=== PATIENT | female | born 1950 | race Caucasian/White ===

== ENCOUNTER 2023-03-27 07:59 | Day surgery (SDC) | payer MEDICARE, SELFPAY ==
[2023-03-27] VITALS (7 sets, daily range): BP systolic 93–131; BP diastolic 50–68; PULSE 50–63; RESP 16–18; TEMP 36.5–36.8; O2SAT 97–100; BMI 34.7
[2023-03-27] MEDS: Lactated Ringers 1,000 ML 15 ML IV (08:38)
--- NOTE | 2023-03-27 08:41 | PCM.HP.BLA ---
History and Physical Date of Admission: 03/27/23 Intake Vital Signs 02/22/2315:18 BP 112/71 Blood Pressure Location Rt brachial Position Sitting Respiration 17 Pulse 73 Pulse Source Monitor Temp 97.4 F L Temp Source Temporal Pulse Oximetry (%) 97 Oxygen Delivery Method room air Intake Visit Reasons: C-Scope Anemia & Abnormal CT [place] Chief Complaint: c-scope anemia/ abnormal CT [place] Is patient in pain?: No Allergies Sulfa (Sulfonamide Antibiotics) Allergy (Severe, Verified 02/22/23 15:21) Itching Medications albuterol sulfate 90 mcg/actuation aerosol inhaler (Ventolin HFA) 2 puff inhalation Q6H PRN 02/22/23 [History Confirmed 02/22/23] atorvastatin 20 mg tablet 20 mg PO DAILY 02/22/23 [History Confirmed 02/22/23] ferrous sulfate 325 mg (65 mg iron) tablet (Feosol) 325 mg PO DAILY 02/22/23 [History Confirmed 02/22/23] fluticasone 500 mcg-salmeterol 50 mcg/dose blistr powdr for inhalation (Advair Diskus) 1 inh inhalation BID 02/22/23 [History Confirmed 02/22/23] ipratropium 0.5 mg-albuterol 3 mg (2.5 mg base)/3 mL nebulization soln 3 ml inhalation Q6H PRN 02/22/23 [History Confirmed 02/22/23] levothyroxine 150 mcg capsule 150 mcg PO DAILY 02/22/23 [History Confirmed 02/22/23] lorazepam 1 mg tablet (Ativan) 1 mg PO DAILY PRN 02/22/23 [History Confirmed 02/22/23] losartan 100 mg tablet (Cozaar) 100 mg PO DAILY 02/22/23 [History Confirmed 02/22/23] montelukast 10 mg tablet (Singulair) 10 mg PO DAILY 02/22/23 [History Confirmed 02/22/23] [facility] Medical History (Updated 02/22/23 @ 16:[address] Andrade Traore MD) FH: total knee replacement H/O hiatal hernia Surgical History (Updated 02/22/23 @ 15:17 by Colette Clemente) History of appendectomy History of cholecystectomy Family History (Updated 02/22/23 @ 15:18 by Colette Clemente) Sister Colon cancerFather Diabetes Heart diseaseMother Kidney disease Social History (Updated 02/22/23 @ 15:18 by oClette Clemente) Smoking Status: Never smoker alcohol intake: never substance use type: does not use HPI HPI HPI: Patient is a 73-year-old female here with abnormal CT scan. The patient was having a right-sided abdominal pain and a CT scan was ordered. The CT scan revealed thickening of the rectum concerning for malignancy. The patient also is anemic. She denies any gross blood in her stool. She had an EGD recently that did not show any reason for her anemia. Her last colonoscopy was last year. She does have a family history of colon cancer in her sister. ROS General General: Yes weight change and fatigue; No appetite, colon cancer, breast cancer or weakness HEENT HEENT: No difficulty swallowing, eye injury, eye surgery, swollen glands or hoarseness Endo Endocrine: Yes thyroid disease and diabetes mellitus; No thyroid cancer, Hair loss, heat intolerance or cold intolerance Skin Skin: No rash or changing moles Musc Musculoskeletal: Yes arthritis and rheumatoid arthritis; No back problems, gout or joint pain Cardio Cardiovascular: Yes high blood pressure; No murmur, pacemaker, heart disease, atrial fibrillation, heart attack, heart stent, palpitations, shortness of breat with exertion or chest pain Psych Psychiatric: Yes anxiety; No depression or hearing voices Resp Respiratory: No shortness of breath, No sleep apnea, No cough, No COPD, No asthma, No emphysema and No wheezing Gastro Gastrointestinal: Yes abdominal pain, No nausea or vomiting, No diarrhea, No constipation, No blood in stool, Yes acid reflux, Yes hemorrhoids, No ulcers, No gallbladder problem and No black,tarry stools Reyes Hematologic: No blood thinners, No blood disorders, No bleeding, Yes anemia and No blood clots Neuro Neurologic: No system reviewed and no additional complaints, except as documented, No as per HPI, No abnormal gait, No abnormal hearing, No abnormal movements, No abnormal speech, No behavioral changes, No burning sensations, No confusion, No convulsions, No disequilibrium, No dizziness, No localized weakness, No frequent falls, No headache(s), No lack of coordination, No loss of vision, No memory loss, No numbness, No other visual disturbances, No radicular pain, No restless legs, No sensory deficit, No syncope, No tingling, No tremor(s), No weakness and No other Exam Const General: cooperative Orientation: alert and oriented x3 HENMT Head: normal to inspection Neck Neck: normal visual inspection and full ROM Chest Chest palpation & inspection: normal inspection of the chest Resp Effort & Inspection: normal respiratory effort Auscultation: clear to auscultation bilaterally Cardio Rate: regular rate Rhythm: regular rhythm GI Inspection: non-distended Palpation: soft and nontender Skin General: no rashes or lesions noted Neuro General: patient alert and patient oriented x3 Extrem General: full ROM Psych Appearance: grossly normal Mental Status: mental status grossly normal Assessment and Plan Assessment and Plan (1) Anemia: Status: Acute Qualifiers: Anemia type: unspecified type Qualified Code(s): D64.9 - Anemia, unspecified (2) Abnormal CT scan, colon: Status: Acute Orders: Orders Colonoscopy Today Plan The patient had thickening of her rectum on CT exam. I performed a rectal exam but I did not feel any mass or firm areas in the rectum or anal canal. I will plan to repeat colonoscopy to evaluate for her anemia. I explained endoscopy in detail to the patient. I explained the risks including but not limited to stroke or heart attack with anesthesia, perforation of the GI tract, bleeding, infection. I explained that any of these could necessitate further emergency surgery. The patient understands and all questions were answered sufficiently. The patient wishes to proceed with procedure. Andrade Traore MD Pager: [facility] [address] [place] [address], [address] [place] [address] Office: I have examined the patient and the H&P has been reviewed. There are no clinical changes since date of exam.
--- NOTE | 2023-03-27 09:28 | OP.CCLET_ITS ---
03/27/2023 Kevin Adam Re : Colonoscopy procedure for Suha Adam This procedure was performed on Monday, March 27, 2023. My impressions and recommendations are as follows: Impressions : - The entire examined colon is normal on direct and retroflexion views. - No specimens collected. Recommendations : - Discharge patient to home. - Resume previous diet. - Continue present medications. - Repeat colonoscopy is not recommended due to current age (66 years or older) for screening purposes. My findings are described in the full procedure note, which is enclosed. If I can be of further assistance, please feel free to contact me at Doctor phone number(s): , Work: . Sincerely, Andrade Traore MD 03/27/2023 9:28:11 AM This report has been signed electronically.
--- NOTE | 2023-03-27 09:28 | OP.COLON_ITS ---
Patient Name: Suha Weinberg Procedure Date: 03/27/2023 8:49 AM Date of : 1950 Age: 73 Procedure: Colonoscopy Indications: Abnormal CT of the GI tract Providers: Andrade Traore MD Medicines: Monitored Anesthesia Care Patient Profile: This is a 73 year old female. Refer to note in patient chart for documentation of history and physical. Last Colonoscopy: 3 years ago. Complications: No immediate complications. Procedure: Pre-Anesthesia Assessment: - Prior to the procedure, a History and Physical was performed, and patient medications and allergies were reviewed. The patient's tolerance of previous anesthesia was also reviewed. The risks and benefits of the procedure and the sedation options and risks were discussed with the patient. All questions were answered, and informed consent was obtained. Prior Anticoagulants: The patient has taken no anticoagulant or antiplatelet agents. After reviewing the risks and benefits, the patient was deemed in satisfactory condition to undergo the procedure. After I obtained informed consent, the scope was passed under direct vision. Throughout the procedure, the patient's blood pressure, pulse, and oxygen saturations were monitored continuously. The Colonoscope was introduced through the anus and advanced to the cecum, identified by appendiceal orifice and ileocecal valve. The colonoscopy was performed without difficulty. The patient tolerated the procedure well. The quality of the bowel preparation was good. The ileocecal valve, appendiceal orifice, and rectum were photographed. Scope In: 9:09:39 AM Scope Withdrawal Time 0 hours 6 minutes 14 seconds Scope Out: 9:25:07 AM Total Procedure Duration Time 0 hours 15 minutes 28 seconds Findings: The entire examined colon appeared normal on direct and retroflexion views. Impression: - The entire examined colon is normal on direct and retroflexion views. - No specimens collected. Recommendation: - Discharge patient to home. - Resume previous diet. - Continue present medications. - Repeat colonoscopy is not recommended due to current age (66 years or older) for screening purposes. Procedure Code(s): --- Professional --- 90470, Colonoscopy, flexible; diagnostic, including collection of specimen(s) by brushing or washing, when performed (separate procedure) Diagnosis Code(s): --- Professional --- R93.3, Abnormal findings on diagnostic imaging of other parts of digestive tract CPT copyright 2021 [employer]. All rights reserved. The codes documented in this report are preliminary and upon dental nurse review may be revised to meet current compliance requirements. Andrade Traore MD 03/27/2023 9:28:11 AM This report has been signed electronically. Number of Addenda: 0 Note Initiated On: 03/27/2023 8:49 AM
== END 2023-03-27 10:12 | disposition home or self-care (01) ==
LOC: EN 08:02 → AC 08:03
PROVIDERS: PCP Family Medicine; Referring Provider Family Medicine; Visit Provider Surgery
PROC: 0DJD8ZZ Inspection of Lower Intestinal Tract, Via Natural or Artificial Opening Endoscopic (ICD-10-PCS; CPT 45378; principal; 2023-03-27 09:10)
DX: Z12.11 Encounter for screening for malignant neoplasm of colon (principal); E11.9 Type 2 diabetes mellitus without complications; R93.3 Abnormal findings on diagnostic imaging of other parts of digestive tract; D64.9 Anemia, unspecified; I10 Essential (primary) hypertension; J45.909 Unspecified asthma, uncomplicated; E07.9 Disorder of thyroid, unspecified; E78.00 Pure hypercholesterolemia, unspecified; Z79.899 Other long term (current) drug therapy
CPT/HCPCS: 45378; J7120; J2405

== ENCOUNTER → 2023-07-31 | Outpatient (CLI) | payer MEDICARE, SELFPAY ==
--- NOTE | 2023-07-31 08:07 | CT_ITS ---
PROCEDURE: CT LEFT KNEE WITHOUT CONTRAST REASON FOR EXAM: Female, 73 years old. Preoperative planning for the MakoPlasty Robotic knee surgery. Knee pain. TECHNIQUE: Transaxial CT of the hip, knee and ankle were obtained. Coronal and sagittal reconstruction images of the knee were provided. Individualized dose optimization techniques were used for this CT. COMPARISON: None. FINDINGS: Standard protocol for the preoperative planning for the MakoPlasty robotic knee surgery was performed. Mild arthrosis of the left hip, moderate tricompartmental arthrosis of the left knee and moderate arthrosis of the tibiotalar joint CT/Extremity Lower without Contra IMPRESSION: Preoperative MakoPlasty Robotic knee surgical CT evaluation with findings as described above. Electronically Signed: Den Boyd MD at 12:29 EDT ,
== END | disposition home or self-care (01) ==
PROVIDERS: PCP Family Medicine; Referring Provider Specialist; Visit Provider Specialist
DX: M25.562 Pain in left knee (principal); M17.12 Unilateral primary osteoarthritis, left knee
CPT/HCPCS: 73700

== ENCOUNTER 2023-08-22 11:58 | Observation (INO) | payer MEDICARE, SELFPAY ==
--- NOTE | 2023-07-31 08:09 | EKG12_ITS ---
Test Reason : PREOP Blood Pressure : / mmHG Vent. Rate : 060 BPM Atrial Rate : 060 BPM P-R Int : 164 ms QRS Dur : 086 ms QT Int : 420 ms P-R-T Axes : 053 060 071 degrees QTc Int : 420 ms Normal sinus rhythm Normal ECG Confirmed by Bryn Worthington ([id number]), make up editor CÉSAR ALCALA ([id number]) on 08/01/2023 6:29:56 AM Referred By: Jb Issa Confirmed By:Bryn Worthington
[2023-07-31 09:03] LABS: Absolute Lymphocyte Count 1.29 X10^3/uL (0.83-4.51); Absolute Neutrophil Count 4.7 X10^3/uL (2.0-7.7); Hematocrit 35.7 % (37-47); Hemoglobin 11.3 g/dL (12.0-15.0); Lymphocyte # 1.29 X10^3/ul (0.83-4.51); Lymphocyte % 19.9 % (19-41); Mean Corp Hgb Conc 31.7 g/dL (32-36); Mean Corpuscular Volume 88.4 fL (81-99); Mean Platelet Vol. 10.5 fl (6.2-12.0); Monocyte# 0.47 X10^3/uL; Monocyte% 7.3 % (0-10); NRBC Flagged by Analyzer 0 % (0-5); Neutrophil % 72.5 % (47-70); Platelet Count 223 K/mm3 (150-450); RBC Distribution Width CV 14.3 % (11.6-14.6); RBC Distribution Width SD 46.2 fl (35.1-43.9); Red Blood Count 4.04 M/mm3 (4.2-5.4); White Blood Count 6.5 K/mm3 (4.4-11.0)
[2023-07-31 09:16] LABS: Magnesium 1.9 mg/dL (1.6-2.6)
[2023-07-31 09:19] LABS: Albumin, Serum 3.5 g/dL (3.2-5.0); Anion Gap 6 (5-15); BUN 9 mg/dL (7-18); BUN/Creat Ratio 11.7 RATIO (10-20); Calcium,Total 8.8 mg/dL (8.5-10.1); Chloride 107 mmol/L (98-107); Creatinine, Serum 0.77 mg/dL (0.55-1.02); EST Glomerular Filtration Rate 78 mL/min (>60); Est Glom Filt Rate - Afr Amer 94 mL/min (>60); Glucose 141 mg/dL (74-106); Potassium 3.8 mmol/L (3.5-5.1); Sodium Level 139 mmol/L (136-145)
[2023-07-31 10:45] LABS: Hemoglobin A1c 7.2 % (3.8-5.6)
--- NOTE | 2023-08-13 13:11 | HP.PCM_ITS ---
History and Physical History and Physical? Patient Name: Suha Weinberg : 1950 From:? ARGELIA TOLEDO PA-C? DATE OF PRE-OPERATIVE EXAM: 08/13/2023 DATE OF SURGERY:? 08/22/2023 SCHEDULED PROCEDURE:? Left total knee arthroplasty HISTORY OF PRESENT ILLNESS: Preoperative history and physical exam was performed on August 13, 2023.? This is a 73-year-old female who is been having ongoing pain for the past 6 months in her left knee.? She has had previous right total knee [place] [address] Snow.? Patient's pain can reach 10/10 with activities.? She has used on occasion Percocet for pain control.? Patient had to stop the meloxicam due to rash.? She states the anti-inflammatory was helpful.? She has taken other anti- inflammatories including ibuprofen or Aleve in the past without problems.? Her pain as being constant, stabbing, sore.? Pain is increased with going up and down stairs, sitting and walking.? She has difficulty getting out of the vehicle due to the pain.? 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 She has difficulty putting on her socks and shoes as well as housework and shopping.? She has tripped/stumbled secondary to her knee pain.? She has attempted ice, heat, oral medications with no significant relief.? Pain is located over the medial aspect of the knee and lateral.? She does get posterior knee pain as well.? Pain does awaken her at nighttime.? She has to use a cane for ambulatory assistance.? She denies past history of surgery on the right knee.? Patient has obtain surgical clearance from her primary care provider Dr. Kevin Adam.? She also sees a drafting layout worker Dr. Loo.? Per patient she states the drafting layout worker that she does not have COPD but does have asthma.? We are sending for clearance to her drafting layout worker.? Patient has medical history pertinent for type 2 diabetes mellitus with the last A1c 7.2, hypertension, asthma, sleep apnea, and anemia.? With regards to the anemia and December 2022 her hemoglobin was at 8.3.? Most recent hemoglobin was 11.3.? She states she had a previous colonoscopy and upper endoscopy.? Patient reports there was no active bleeding appreciated.? She also documents a hiatal hernia.? She denies past history of DVT or pulmonary embolism.? There is been no recent chest pain, shortness breath, fevers chills or recent infections.? After failing conservative measures and discussing all treatment options with Dr. Jb Issa, the patient does wish to proceed with a left total knee arthroplasty. REVIEW OF SYSTEMS: Review Of Systems: Constitutional: Reports weight change, but denies change in appetite and fever. Cardiovasular: Denies chest pain, heart murmur and irregular heartbeat. Respiratory: Reports shortness of breath and wheezing, but denies cough, pneumonia and tuberculosis. Gastrointestinal: Reports heartburn, but denies constipation, diarrhea, nausea, rectal itching, bloody stools and vomiting. Musculoskeletal: Reports gait disturbance, leg swelling, pain, trouble walking and weakness. Skin: Denies Raynaud's, history of shingles and tattoo. Neurological: Reports dizziness and numbness/tingling but denies ambulatory dysfunction and tremor. Psychiatric: Denies anxiety, insomnia and stress. Hematologic/Lymphatic: Reports anemia, but denies bleeding/bruising tendency and past transfusion. Reviewed and updated. PAST MEDICAL HISTORY: Advance Care Plan: No Advance Directives Effective Date: 11/16/2022 Past Medical History: Medical Problems: Arthritis, Asthma, Diabetes, High Blood Pressure, Sleep Apnea, Anemia Accidents: None Surgical Hx: Section - (1975) [facility]? Hernia Repair - (2019) [facility]? Knee Replacement Rt - (1998) [facility] Anesthesia Complications: Anesthesia Complications Assistive Devices: Dentures Reviewed and updated. 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 Personal Habits:? Cigarette Use: Never Smoked Cigarettes.Smokeless Tobacco: Never Used Smokeless Tobacco.E-Cigarette Use: Never used.Alcohol: Occasionally.Drug Use: Denies Use.Enjoy Exercising: Never Exercises. Reviewed, no changes. VITALS: Ht: 62 Wt: 191lb Wt k.638 BMI: 34.9 BP: 142/78 Pulse: 78 Resp: 17 T: 97.3 T: 36.3C Pain Level: 7 O2SatR: 97 ALLERGIES: Sulfa Meloxicam? MEDICATIONS: Mupirocin 2 % use qtip and apply inside each nostril twice a day until the day of surgery, Levothyroxine Sodium 150 mcg daily, Montelukast Sodium 10 mg 1 by mouth every day, Atorvastatin Calcium 20 mg 1 by mouth every day, Losartan Potassium 100 mg 1 by mouth every day, Ipratropium [place]/Albuterol Sulfate 0.5-2.5 (3) mg/3ml every 4 hours, Ventolin Inhaler? inhaler 2 puffs as needed, Oxycodone-Acetaminophen 5-325 mg take 1 tablet by mouth every 6 hours as needed for pain, Folic Acid 5 mg daily, Iron 28 mg daily PRE-OP EXAM:? General appearance:NORMAL? ? ? Other: Eyes: Conjunctivae and lids: NORMAL? Pupils: ERR Ears, Nose, Mouth, and Throat: NORMAL? Other: Inspection of lips, teeth and gums: NORMAL? ?Other: Neck: Examination of neck: no masses noted. Respiratory: Assessment of respiratory effort: NORMAL? ?Other: ?Auscultation of lungs: clear to auscultation no wheezes, rhonchi or rales. Cardiovascular:? Auscultation of heart: regular rate and rhythm, no murmurs, gallops or rubs. PHYSICAL EXAMINATION: On exam of the left knee there is no erythema or signs of infection.? Patient has significant tenderness over the medial joint line and lateral joint line.? There is a large effusion with the left knee.? Range of motion: Lacks 5 full extension to 112 flexion.? Stable to varus/valgus stress test, stable to anterior/posterior drawer exam. IMAGING STUDIES: Previous x-rays of the left knee reveal varus alignment with medial joint space narrowing, subchondral sclerosis, osteophyte formation consistent with severe stage IV [id number] osteoarthritis.? On the right knee there does appear to be a total knee arthroplasty with evidence of ostial lysis in the medial tibia IMPRESSION: 1.? Severe left knee osteoarthritis with varus deformity 2.? Presence of right total knee arthroplasty 3.? Hypertension 4.? Type 2 diabetes mellitus: A1c currently 7.2 5.? Sleep apnea 6.? Anemia 7.? Asthma 8.? Obesity with BMI 34.9 PLAN: Dr. Jb Issa did discuss and review with the patient all treatment options including surgical versus nonsurgical options.? Patient does wish to proceed with the above-stated procedure.? Potential risks, benefits, and complications of the procedure were discussed in detail including but not limited to , infection, nerve and blood vessel damage, persistent pain, numbness, tingling, paresthesias, blood clot, pulmonary embolism, and requirement for possible further surgery.? The patient expressed full understanding and has no further questions for the doctor.? Patient does agree to proceed with the above-stated procedure and has signed the surgery consent form. POST-OP MEDICATION PLAN: Pain Medications: Postoperative pain regimen will be initiated by Dr. Jb Issa in the hospital.? Patient is not able to take meloxicam or Celebrex due to side effect.? However she has handled other nonsteroidal anti-inflammatories without problems.? Due to patient's A1c greater than 7.0 and preoperatively found to be staph positive she will be placed on doxycycline postoperatively for 2 weeks.? Instructed patient of the risks of hypersensitivity to the sunlight as she should take appropriate precautions.? Also recommend [id number] probiotics while on antibiotic.? Patient also reports that she lives home alone and there is concern for discharge home.? I did explain to her that she will be evaluated by physical therapy postoperatively and case management will be on board for appropriate and safe discharge planning. DVT Prophylaxis:? Aspirin 81 mg twice daily for 4 weeks postoperatively.? Denies past history of DVT or pulmonary embolism This dictation was created using voice recognition software. Phonetic and/or grammatical errors may exist. ___? I have re-examined the patient.? There are no clinical changes since date of exam. ___? See progress notes for changes. ___? Dictated on admission Date: ? ? ?Time: Signature:
[2023-08-22] VITALS (23 sets, daily range): BP systolic 106–150; BP diastolic 55–75; PULSE 49–89; RESP 14–20; TEMP 36–36.8; O2SAT 87–100; BMI 34.9
[2023-08-22] MEDS: Lactated Ringers 1,000 ML 999 ML IV (08:17)
[2023-08-22] MEDS: Gabapentin 600 MG Tablet PO (08:17)
[2023-08-22] MEDS: Vancomycin HCl 1,250 MG in 0.9% Normal Saline (250mL Bag) 250 ML 167 MG IV (08:17)
[2023-08-22] MEDS: Acetaminophen 500 MG Tablet 1000 MG PO ×3 (08:17→22:47)
[2023-08-22] MEDS: Magnesium 2 GM for ERAS IV (08:17)
[2023-08-22] MEDS: Ipratropium/Albuterol Sulfate 3 ML AMPUL.NEB INHALATION (09:10)
[2023-08-22] MEDS: Cefazolin 2 GM in 0.9% Normal Saline (100mL Bag) 100 ML IV (09:54)
--- NOTE | 2023-08-22 10:00 | KNEE_PTH ---
PATIENT: YOSELIN RIVERS LOC: [facility] U#:[id number] AGE/SX: 73/F ROOM: MI319 RE08/22/[address]: Dr. Luis F Rouse MD : 1950 BED: 1 DIS: 08/29/2023 SPEC #: [id number] RECD: 08/22/23 13:46 STATUS: MAGALI LOMAX #: [id number] VIELKA: 08/22/23 10:[address]: Jb Issa DEPT: SURGICAL PATHOLOGY RECD BY: Nanette Begum ENTERED: 08/22/23 14:03 SP TYPE: TOTAL KNEE OTHR DR: DO Dr. Kevin Judd MD Tissues: Knee, NOS Procedures: Decalcification bone/plaque Surgery Specimen Level IV HEADER OPERATION: ERAS, total knee replacement robotic arm assist PRE-OP DIAGNOSIS: Severe left knee osteoarthritis with varus deformity TISSUE SUBMITTED: Bone and soft tissue left knee MICROSCOPIC DIAGNOSIS Bone and tissue of left knee, total knee resection: Severe degenerative joint disease. AM:mr 08/28/23 MICROSCOPIC DESCRIPTION Slides are reviewed. GROSS DESCRIPTION Received is one container designated bone and soft tissue left knee. The specimen consists of multiple fragments of dey-yellow bone measuring in aggregate 8.5 x 10.0 x 4.0 cm. No soft tissue is identified. A number of bony fragments contain articular surfaces consistent with tibial plateau and femoral condyle and displaying prominent osteophyte formation, eburnation and bone erosion. Human Relations Manager sections are submitted in two cassettes as follows: 1 - bone after decalcification. / 08/22/23 TC:5 CPT: 05985, 16421
[2023-08-22] MEDS: TXA 1000mg in NS100 100ml (IVPB at Incision) 660 MG IV (10:10)
[2023-08-22] MEDS: TXA 1000mg in NS100 100ml (IVPB at Closure) 660 MG IV (11:16)
[2023-08-22] MEDS: JPS (Morphine 10mg/ml) OPERA.SITE (11:17)
--- NOTE | 2023-08-22 11:21 | OP.PCM_ITS ---
Report of Operation Date of Procedure: 08/22/23 Pre-Operative Diagnosis: Left knee primary osteoarthritis Post-Operative Diagnosis: Left knee primary osteoarthritis Surgery/Procedure Performed:: Left knee minimally invasive robotic assisted total knee replacement Description of Surgical Findings:: Stable knee with good patella tracking Surgeon: Jb Issa morning news anchor: Dominguez Cortez Type of Anesthesia: Spinal Anesthesiologist: Vinayak Banks Special Medications: 2 g Ancef, 1 g TXA at incision, 1 g TXA closure, 10 mg Decadron, joint cocktail (5 mg Duramorph, 30 mL of 0.5% Ropivicaine, 1000 units of epinephrine, 30 mg of Toradol) Specimen's removed: Bony cuts Estimated Blood Loss (mL): 75 Fluids Replaced: 1000 ML Description of Procedure: Implants used: 1. Amina size 2 triathlon cruciate retaining distal femoral press-fit component 2. Waller size 3 press-fit tritanium tibial baseplate 3. Amina X3 9 mm CS polyethylene 4. Waller X3 35 mm asymmetric patella Brief history operative indications: 73-year-old F with history of left knee osteoarthritis with radiographic findings with loss of joint space, osteophyte formation and subchondral sclerosis. Failed conservative measures as mentioned in the H&P. Discussion of total knee arthroplasty as well as risk and benefits were discussed the patient including but not limited to blood loss, DVTs, PEs, neurovascular damage, gener al risk of anesthesia including loss of life, and stiffness or instability were discussed with patient. Patient demonstrated understanding and was able to sign informed consent. Procedure: On the date of procedure patient's left lower extremity was marked in the preoperative area. The patient was then taken back to the operating room where the patient was placed on the table in the supine position. All bony prominences were identified a well-padded. Anesthesia assumed control of the C-spine and airway and remained controlled throughout the remainder of the procedure. A tourniquet was placed on the left upper thigh and the leg was prepped in a sterile fashion. The surgeon then scrubbed at this time .Upon reentering the room left lower extremity was draped in a standard orthopedic fashion. A timeout was then called and everyone agreed upon the side, the site, the procedure to be performed, patient's identity and antibiotics given. Esmarch bandage was used to exsanguinate the extremity and the tourniquet was placed up to 250 mmHg with the knee in flexion. A midline skin incision was made and sharp dissection was taken down through skin subcutaneous tissue and fat. The standard medial parapatellar incision was made and the patella was subluxed laterally. An Appropriate deep MCL release was done and the fat pad was resected. Our attention was then directed to the patella. The patella was everted and a flat resection was made. The knee was then flexed up in 2 femoral pins were placed inside the incision and 2 tibial pins were placed outside the incision in the medial tibia bi cortically. Once this was completed the 2 checkpoints in the femur and tibia were placed. Knee was then flexed up and the bony landmarks were registered. Once this was completed knee was taken through range of motion and manually stressed allowing us to a plan for an appropriate tibial cut. The robotic arm was brought into the field sterilely and checkpoint and saw were registered. Based on the patient's deformity the tibial cut was made in 1.5 degrees of valgus. At this time the tensioner was then placed in the joint and ligament tension was checked at 90 degrees and full extension. Based on the patient's ligamentous tension appropriate adjustments were made to the operative plan and ligament releases were done. Once we were happy with our operative plan with balanced flexion and extension gaps our attention was directed to the femur. The robot was brought into the field sterilely and registered. Posterior condylar cuts, anterior chamfer cuts and anterior cuts were appropriately made for a size 2 femur. When these were completed the saws were switched out in the distal femoral and posterior chamfer cuts were made. Protecting the soft tissue throughout this time. A size 3 tibial base plate was selected. the knee was flexed to 90 degrees and the soft tissues and posterior osteophytes were removed from the joint. 40 cc of the periarticular injection was injected into the posterior medial corner of the joint. The appropriate trials were then placed on the femur and tibia. A trial polyethylene was trialed to ensure proper balancing and stability of the knee. The appropriate tibial internal rotation was then marked with a bovie. Our attention was then directed to the patella. The lug holes were drilled and the patella trial was placed. Patellar tracking was checked and deemed appropriate. Once we were happy lug holes were drilled for the femur and trial components were removed. the tibia was subluxed and pinned into place and the keel was punched and drilled appropriately. Final components were verified and opened, and cement was mixed in a vacuum. [employer] Simplex cement was used. The wound was copiously irrigated with normal saline. When the cement was ready the components were impacted into place starting with the tibia, femur and finally cementing the patella. The trial poly component was placed and the knee was placed in full extension. All excess cement was removed in the process. Once the cement had cured the tracking, alignment and balance were verified and a size 9 mm CS polyethylene component was placed. Once the final components were placed a 3-minute dilute Betadine lavage was performed followed by an Irrisept lavage was performed and the wound was copiously irrigated with normal saline solution and the periarticular injection was given. The wound was closed in a layer jimenez fashion using #1 vicryl interrupted sutures for the arthrotomy, 2-0 interrupted Vicryl suture for the subcuticular layer and kristin for final skin closure. A sterile compressive dressing was then placed. The patient was then awakened from anesthesia, transferred to the [facility] and transferred to the PACU for recovery. Post op plan DVT ppx: ASA 81mg BID, thigh high compression stockings Follow up: in office in 2 weeks for wound check PT: to start POD #0 at hospital, outpatient PT should be arranged. Patient be placed on doxycycline postoperatively due to positive staph screening and hemoglobin A1c greater than 7 but less than 7.5. My physician commercial real estate assistant was a vital part of this case. He was important in appropriate retraction during the case, and protection of soft tissues during bony cuts. His intimate knowledge of the case and my steps aided in safe and expedient completion of the procedure as well as appropriate position of the leg during the case. He was also vital in assisting with closure under my direct supervision. Due to the complexity of this case robotic arm was used to assist in the surgery to improve accuracy and clinical outcomes. Complications No intraoperative complications Admit VTE Documentation VTE Present on Admission: No VTE Mechan Device Prophylaxis: SCD's and Thigh High KELSEA Hose VTE Pharm Prophylaxis ordered?: Yes
--- NOTE | 2023-08-22 12:20 | RAD_ITS ---
STUDY: X-RAY - LEFT KNEE REASON FOR EXAM: Female, 73 years old. Postoperative evaluation after total knee arthroplasty. TECHNIQUE: 2 view(s) of the knee. COMPARISON: CT of the left lower extremity dated 07/31/2023 FINDINGS: There is a 3 component total knee arthroplasty in anatomic position. There are expected post-operative findings. There are no complications. No other significant abnormality is identified. RAD/Knee 1 or 2 Views IMPRESSION: Total knee arthroplasty in anatomic alignment without complications. Electronically Signed: Den Boyd MD at 12:44 EDT ,
[2023-08-22] MEDS: Lactated Ringers 1,000 ML 125 ML IV (12:50)
[2023-08-22] MEDS: oxyCODONE 5 MG Tablet PO (13:59)
[2023-08-22] MEDS: 0.9% Saline Lock 10 ML Syringe IV (14:40)
--- NOTE | 2023-08-22 14:47 | PN.ORTHO_ITS ---
Subjective Subjective Postop rounds show patient with left knee pain. Overall doing well. Resting comfortably in bed. Objective Data Objective Data Vital Signs: Vital Signs Temp Pulse Resp BP Pulse Ox O2 Del Method O2 Flow Rate 98.2 F 52 L 16 129/55 H 96 Room Air 4 08/22/23 13:41 08/22/23 13:41 08/22/23 13:41 08/22/23 13:41 08/22/23 13:41 08/22/23 13:41 08/22/23 13:09 Oxygen Flow Rate (L/min) 4 Oxygen Delivery Method Room Air Weight: 191 lb Body Mass Index (BMI) 34.9 Intake & Output: Intake and Output for Last 24 Hours 08/20/23 08/21/23 08/22/23 23:59 23:59 23:59 Intake Total 1709 / 1709 Balance 1709 / 1709 Lab / Micro Data 07/31/23 08:38 07/31/23 08:38 Micro: Microbiology 07/31/23 08:38 Swab (Method) Nasal Screen MRSA/MSSA - Final Radiography Diagnostic Testing: Radiology Impression Knee X-Ray 08/22/23 12:20 IMPRESSION: Total knee arthroplasty in anatomic alignment without complications. Electronically Signed: Den Boyd MD at 12:44 EDT , I was able to personally review postoperative left knee x-rays. There is a corticated fragment consistent with bone in the lateral gutter. This is compared to preoperative CT scan and preoperative x-rays and do not appreciate a corresponding area of corticated tissue. CT scan and preoperative x-rays do show some posterior flabella type structures however, not consistent with size and location. Assessment & Plan Assessment/Plan (1) History of total left knee replacement: PLAN: Plan Left total knee replacement. Patient has stable well aligned total knee with overall satisfactory component placement however, there is a corticated foreign body likely consistent with bony fragment in the lateral gutter. I have discussed the patient these radiographic findings and my concerns for loose foreign body and associated third body wear which could cause catastrophic failure of knee replacement if left alone. Do understand patient does have preoperative findings consistent with flabella however, the location and size of the current radiographic findings are not consistent with the preoperative imaging. Based on this I spoke with the patient and with her family at bedside and recommended an exploration and removal of the foreign body should be fine did. Patient demonstrates an understanding and is agreeable. Case was dis cussed anesthesia we will proceed with surgery. Patient has had some clears. If we are able to do that today it should not alter patient's postoperative course. Consent has been obtained. Patient was made NPO.
[2023-08-22 14:48] LABS: Bedside Glucose 121 mg/dL (74-106)
--- NOTE | 2023-08-22 14:48 | PN.HOSP_ITS ---
Reason for Visit Reason for Visit: Diagnoses Encounter for other preprocedural examination (08/22/23) Subjective Subjective Consult requested by Dr. Issa for postoperative medical management Patient nauseated postop did have a one-time episode of emesis. No abdominal pain.. Patient had increased pain in her left knee but this currently doing better. Objective Data Objective Data Vital Signs: Vital Signs Temp Pulse Resp BP Pulse Ox O2 Del Method O2 Flow Rate 36.8 C 52 L 16 129/55 H 96 Room Air 4 08/22/23 13:41 08/22/23 13:41 08/22/23 13:41 08/22/23 13:41 08/22/23 13:41 08/22/23 13:41 08/22/23 13:09 Oxygen Flow Rate (L/min) 4 Oxygen Delivery Method Room Air Weight: 86.636 kg Body Mass Index (BMI) 34.9 Intake & Output: Intake and Output for Last 24 Hours 08/20/23 08/21/23 08/22/23 23:59 23:59 23:59 Intake Total 1709 / 1709 Balance 1709 / 1709 Lab / Micro Data 07/31/23 08:38 07/31/23 08:38 Micro: Microbiology 07/31/23 08:38 Swab (Method) Nasal Screen MRSA/MSSA - Final Radiography Diagnostic Testing: Radiology Impression Knee X-Ray 08/22/23 12:20 IMPRESSION: Total knee arthroplasty in anatomic alignment without complications. Electronically Signed: Den Boyd MD at 12:44 EDT Reading Location ID and State: [address] [place] [address] , Service support , Physical Exam Const alert and no apparent distress Constitutional Narrative: Listless. Afebrile. Emesis bag in her hands. No active vomiting during encounter. Resp normal respiratory effort, no retractions, no use of accessory muscles and clear to auscultation bilaterally Cardio regular rate, regular rhythm, S1 normal heart sound and S2 normal heart sound GI normal to inspection, nondistended, normoactive bowel sounds, soft to palpation and non-distended Extremity Extremity Narrative: Left knee with ice pack and wrapped, did not remove. Assessment & Plan Assessment/Plan (1) Nausea & vomiting: PLAN: Plan Nausea and vomiting * Postoperative. Suspect will continue to get better. * Continue with as needed Zofran Status post left knee replacement * Management per orthopedics * VTE prophylaxis per orthopedics with aspirin twice daily Chronic conditions * Hypertension: Continue losartan * Hypothyroidism: Continue levothyroxine * Diabetes: Continue with metformin Thank for the consult. The hospitalist service will follow along during this patient's hospitalization. Charges/Coding Visit Charges Inpatient E&M: 21301 Subs Hosp L2
[2023-08-22 14:50] LABS: Bedside Glucose 154 mg/dL (74-106)
--- NOTE | 2023-08-22 15:27 | NURSING ---
Pt sent back down to OR
--- NOTE | 2023-08-22 16:10 | RAD_ITS ---
EXAM: XR LEFT KNEE, 1 OR 2 VIEWS CLINICAL INDICATION: LEFT KNEE TECHNIQUE: Frontal and/or lateral views of the left knee. COMPARISON: No relevant prior studies available. FINDINGS: BONES/JOINTS: Single image shows a left knee prosthesis. No acute fracture. No subluxation. Normal alignment. Preservation of the joint space. No sclerotic or destructive changes observed. SOFT TISSUES: Unremarkable. No soft tissue swelling or gas. No radiopaque foreign body. RAD/Knee 1 or 2 Views IMPRESSION: Left knee prosthesis in anatomic alignment. Electronically Signed: Aidan Rodas MD at 18:38 EDT ,
--- NOTE | 2023-08-22 16:25 | OP.PCM_ITS ---
Report of Operation Date of Procedure: 08/22/23 Pre-Operative Diagnosis: Left knee foreign body on postoperative x-ray Post-Operative Diagnosis: No appreciable foreign body on exploration. Surgery/Procedure Performed:: Left knee exploration and polyethylene exchange Description of Surgical Findings:: We were unable to identify a foreign body in the lateral or posterior lateral compartment of the knee. Live fluoroscopy was brought into reimage at multiple angles confirming that there was no appreciable lateral loose body. Surgeon: Jb Issa account executive key accounts: Dominguez Cortez Type of Anesthesia: General Anesthesiologist: Timothy Nuno Special Medications: 1 g of Ancef Estimated Blood Loss (mL): 25 Fluids Replaced: 1300 ML Description of Procedure: As noted in the post examination note patient x-rays were concerning for a lateral gutter loose fragment of bone. I discussed with the family and the patient need for exploration. Patient was able to sign consent. Patient had only a small amount of clear fluids. Case discussed anesthesia was appropriate to return to the operating room. Patient's left lower extremity was marked and consent was obtained. Patient was then brought back to the operating room where they transferred the table in supine position. Anesthesia central C-spine area made sure throughout the end the procedure. After patient was prepped anesthetized all bony prominence identified well-padded. A bump was placed under the left hip. Tourniquet was placed on the left thigh. At this time the dressing was removed and nylon sutures were removed. The wound was then prepped in a sterile fashion using chlorhexidine solution. Once we did this the wound was draped in a sterile fashion after the surgeon scrubbed. We then incised through the subcutaneous layer of sutures and remove the suture knots. We then incised to the arthrotomy layer of sutures and remove the sutures suture knots. We had access to the knee. We used suction to suction out the hemarthrosis. We did not note any bony fragments suctioned however they could have been. At this time we carefully explored the lateral gutter. Nothing was immediately visible there. We explored the medial gutter nothing was immediately visible. We palpated the area and nothing can be palpated it felt like a bony fragment. We then remove the polyethylene in order to gain access to the posterior knee. We carefully examined the posterior lateral gutter and posterior lateral knee. We also examined the posterior medial knee. There was no large bony fragment has concerning on the x-ray in this area. Based on this any bony areas noted on the x-ray likely related to flabella and calcifications of the tissue. We then used a live x-ray after placing the new polyethylene on multiple angles did not appear that there was a loose body in the lateral compartment now. We then carefully irrigated out the wound using chlorhexidine and 1500 mL of normal saline. Wound was closed in a layer jimenez fashion as it had been before with #1 Vicryl for the arthrotomy 2-0 Vicryl for the subcutaneous layer and 2-0 nylon for the skin. Sterile dressings were placed once more the patient was awakened by anesthesia and transferred to PACU recovery in stable condition. Postop plan: Continue with postoperative plan from total knee replacement. My physician rice cleaning machine tender (PE) was a vital part of this case. They were important in appropriate retraction during the case, and protection of soft tissues during exploration of. Their intimate knowledge of the case and my steps aided in safe and expedient completion of the procedure as well as appropriate position of the leg during the case. They were also vital in assisting with closure under my direct supervision. Admit VTE Documentation VTE Present on Admission: No VTE Mechan Device Prophylaxis: SCD's and Thigh High KELSEA Hose VTE Pharm Prophylaxis ordered?: Yes
[2023-08-22] MEDS: Cefazolin 1 GM/50 ML BAG IV (18:32)
[2023-08-22] MEDS: Budesonide Respules 0.5 MG/2 ML AMPUL.NEB. INHALATION (19:34)
[2023-08-22] MEDS: Albuterol 2.5 MG/3 ML VIAL.NEB. INHALATION (19:34)
[2023-08-22] MEDS: Ondansetron 4 MG/2 ML Vial IV (20:29)
[2023-08-22] MEDS: Ketorolac 15 MG/ML Vial IV (20:29)
[2023-08-22] MEDS: Senna/Docusate Sodium 1 Tablet 2 TABLET PO (22:47)
[2023-08-22] MEDS: Doxycycline 100 MG CAPSULE PO (22:47)
[2023-08-22] MEDS: Atorvastatin Calcium 20 MG Tablet PO (22:48)
[2023-08-23] VITALS (9 sets, daily range): BP systolic 106–146; BP diastolic 48–69; PULSE 57–75; RESP 16–18; TEMP 36.3–36.7; O2SAT 92–100
[2023-08-23] MEDS: oxyCODONE 5 MG Tablet PO ×5 (02:29→22:11)
[2023-08-23] MEDS: Cefazolin 1 GM/50 ML BAG IV (02:37)
[2023-08-23] MEDS: Ketorolac 15 MG/ML Vial IV (04:47)
[2023-08-23] MEDS: Acetaminophen 500 MG Tablet 1000 MG PO ×3 (04:47→22:11)
[2023-08-23] MEDS: Levothyroxine 150 MCG Tablet PO (04:48)
[2023-08-23 07:06] LABS: Bedside Glucose 170 mg/dL (74-106)
[2023-08-23 07:23] LABS: Hematocrit 31.1 % (37-47); Hemoglobin 9.5 g/dL (12.0-15.0); Mean Corp Hgb Conc 30.5 g/dL (32-36); Mean Corpuscular Hgb 28.3 pg (27.0-32.0); Mean Corpuscular Volume 92.6 fL (81-99); Mean Platelet Vol. 10.7 fl (6.2-12.0); Platelet Count 148 K/mm3 (150-450); RBC Distribution Width SD 54.5 fl (35.1-43.9); Red Blood Count 3.36 M/mm3 (4.2-5.4); White Blood Count 5.3 K/mm3 (4.4-11.0)
[2023-08-23] MEDS: Albuterol 2.5 MG/3 ML VIAL.NEB. INHALATION ×3 (07:27→19:25)
[2023-08-23] MEDS: Budesonide Respules 0.5 MG/2 ML AMPUL.NEB. INHALATION ×2 (07:28→19:25)
[2023-08-23 07:35] LABS: Anion Gap 3 (5-15); BUN 8 mg/dL (7-18); BUN/Creat Ratio 11.1 RATIO (10-20); Calcium,Total 8.2 mg/dL (8.5-10.1); Chloride 109 mmol/L (98-107); Creatinine, Serum 0.72 mg/dL (0.55-1.02); EST Glomerular Filtration Rate 84 mL/min (>60); Est Glom Filt Rate - Afr Amer 101 mL/min (>60); Estimated Creatinine Clearance 62.06 ml/min; Glucose 136 mg/dL (74-106); Potassium 4.2 mmol/L (3.5-5.1); Sodium Level 141 mmol/L (136-145)
[2023-08-23] MEDS: Senna/Docusate Sodium 1 Tablet 2 TABLET PO ×2 (07:44→22:07)
[2023-08-23] MEDS: Famotidine 20 MG Tablet PO (07:45)
[2023-08-23] MEDS: Cholecalciferol (VIT D3) 25 MCG TABLET (1,000 UNITS) PO (07:45)
[2023-08-23] MEDS: Doxycycline 100 MG CAPSULE PO ×2 (07:45→22:06)
[2023-08-23] MEDS: Aspirin 81 MG TAB.CHEW PO ×2 (07:45→17:30)
[2023-08-23] MEDS: Montelukast 10 MG Tablet PO (07:45)
[2023-08-23] MEDS: metFORMIN HCl 500 MG Tablet PO (07:45)
[2023-08-23] MEDS: 0.9% Saline Lock 10 ML Syringe IV ×2 (10:00→22:29)
[2023-08-23] MEDS: Ondansetron 4 MG/2 ML Vial IV ×2 (10:00→22:29)
[2023-08-23] MEDS: Morphine 4 MG/ML Syringe IV (10:02)
--- NOTE | 2023-08-23 10:08 | PN.ORTHO_ITS ---
Subjective Subjective The patient was sitting in bed upon examination. Patient denies any chest pain, shortness of breath, dizziness, lightheadedness, nausea or vomiting, or calf pain. Patient does feel the pain has increased and block is worn off. She is concerned about going home as she lives home alone. She is having increased pa in trying to walk to the bathroom. Physical therapy has yet to work with the patient today. Patient does have history of nausea. She was having nausea yesterday and has continued to have this this morning. After patient's surgery yesterday Dr. Jb Issa was reviewing x-rays and there was concern for possible foreign body. She was taken back to the operating room and exploration. There is no loose body found or foreign body. Objective Data Objective Data Vital Signs: Vital Signs Temp Pulse Resp BP Pulse Ox O2 Del Method O2 Flow Rate 97.9 F 70 18 121/65 H 93 Room Air 2 08/23/23 07:38 08/23/23 10:04 08/23/23 07:38 08/23/23 10:04 08/23/23 07:38 08/23/23 07:38 08/23/23 07:28 Oxygen Flow Rate (L/min) 2 Oxygen Delivery Method Room Air Weight: 86.6 kg Body Mass Index (BMI) 34.9 Intake & Output: Intake and Output for Last 24 Hours 08/21/23 08/22/23 08/23/23 23:59 23:59 23:59 Intake Total 2736.08 / 2736.08 250 / 250 Balance 2736.08 / 2736.08 250 / 250 Lab / Micro Data 08/23/23 06:16 08/23/23 06:16 Labs: Laboratory Results - last 24 hr 08/22/23 08:14: POC Glucose 121 H 08/22/23 12:48: POC Glucose 154 H 08/22/23 17:43: POC Glucose 170 H 08/23/23 06:16: WBC 5.3, RBC 3.36 L, Hgb 9.5 L, Hct 31.1 L, MCV 92.6, MCH 28.3, MCHC 30.5 L, RDW Std Deviation 54.5 H, RDW Coeff of Josefina 16.0 H, Plt Count 148 L, MPV 10.7, Sodium 141, Potassium 4.2, Chloride 109 H, Carbon Dioxide 29.0, Anion Gap 3 L, BUN 8, Creatinine 0.72, Estim Creat Clear Calc 62.06, Est GFR (MDRD) Af Amer 101, Est GFR (MDRD) Non-Af 84, BUN/Creatinine Ratio 11.1, Glucose 136 H, Calcium 8.2 L Micro: Microbiology 07/31/23 08:38 Swab (Method) Nasal Screen MRSA/MSSA - Final Radiography Diagnostic Testing: Radiology Impression Knee X-Ray 08/22/23 12:20 IMPRESSION: Total knee arthroplasty in anatomic alignment without complications. Electronically Signed: Den Boyd MD at 12:44 EDT , Knee X-Ray 08/22/23 16:10 IMPRESSION: Left knee prosthesis in anatomic alignment. Electronically Signed: Aidan Rodas MD at 18:38 EDT , Physical Exam Narrative Vital signs stable and afebrile. SCDs and KELSEA hose are in place bilaterally Patient is able to plantarflex and dorsiflex actively. Sensation is intact to light touch to saphenous, sural, superficial and deep peroneal, and tibial distribution. Dressing is clean dry and intact. Negative Homans bilaterally, negative signs and symptoms of DVT. Const alert, oriented x3 and no apparent distress Assessment & Plan Assessment/Plan (1) Status post total left knee replacement: PLAN: 1. S/P left total knee arthroplasty POD #1 2. Continue Pain Medications: Tylenol, naproxen, and oxycodone. Patient states she does not tolerate meloxicam or Celebrex however she has taken other anti- inflammatories and done well. 3. DVT Prophylaxis: Take 81 mg aspirin twice daily for 4 weeks postoperatively for DVT prophylaxis. Patient denies past history of DVT or pulmonary embolism. 4. PT/OT: Weightbearing as tolerated with walker. Appreciate recommendations from physical therapy. There is concern with patient going home as she lives home alone and concern for fall risk. She is having increased pain and difficulty walking. 5. H & H: 9.5/31.1, asymptomatic. Preoperatively patient was started on our a nemia protocol in which she takes ferrous sulfate and folic acid. Preoperatively her hemoglobin/hematocrit was 11.3/35.7. Patient has been followed in the past by her primary care physician in which she stopped iron. Patient reports that she has had a previous colonoscopy and upper GI exam in [facility] it did not show any bleed. She has been using [id number] iron and folic acid. I will add an to her medications in the hospital ferrous sulfate 325 mg twice daily and folic acid 1 mg daily. We will repeat lab work tomorrow. I will have patient ultimately follow-up with the primary care physician in 3-4 weeks with repeat lab work and continued management of the anemia. 6. Currently on doxycycline for 2 weeks postoperatively due to A1c greater than 7.0 and staph positive screening. I discussed with the patient potential side effects of doxycycline including sensitivity to the sunlight and increased risk of skin burn. Recommend patient take appropriate precautions. Also recommend patient to take probiotic while on the antibiotic. Patient voiced understanding agreement. 7. Continue postoperative medical management per medicine 8. Encouraged Incentive Spirometry 9. Disposition: There is concern for discharge home from safety standpoint as patient is having increased pain and difficulty with walking. Concern for fall risk. She lives home alone. Case management is currently involved with appropriate and safe discharge planning. Appreciate recommendations from physi will therapy. Case was discussed with physical therapy. Patient will most likely require [facility] facility upon discharge for recovery. We will continue above medications. I discussed in great detail with the patient all medications above. I have reviewed the [place] Automated Rx Reporting System (OARRS) report for this patient for refill pattern and other prescriber involvement as part of the appropriate surveillance for the provision of acute and chronic controlled medications. The report was requested and reviewed on the date of this entry and was considered in the prescribing process. This dictation was created using voice recognition software. Phonetic and/or grammatical errors may exist.
[2023-08-23] MEDS: Ferrous Sulfate 325 MG Tablet PO ×2 (11:58→17:30)
--- NOTE | 2023-08-23 12:06 | CASEMGMT ---
Discharge Planning A list of?SNF providers including quality and resource use data and consistent with the patient's preferred geographic region, medical needs, and insurance network was created in [employer] Guide.? This list was provided to the SW. Glenis Mcgowan Discharge Planning Asst.
--- NOTE | 2023-08-23 13:45 | CASEMGMT ---
RN?CM?CAN MAKER?CM?to room to meet with patient for initial transition planning/care coordination?assessment.?RN?CM?introduced self and role at [facility].? Pt voices understanding and consents to?assessment?at this time.? Pt sitting up in chair in room in no distress at this time.? Pt is A/O at this time and answers all questions appropriately.?? Care providers, pharmacy, and demographics verified/updated at this time. PCP: Dr Kevin Adam Specialists: Dr Issa-ortho. Dr Pool (pt not sure on spelling)-pest controller assistant in [place]. Preferred Pharmacy: [facility] Insurance: [employer] Prescription Benefit:?yes LNOK: Daughter, Mitzy. Son, Troy. Living Arrangements: Lives in one-story home w/5 steps to enter. Was independent prior to surgery w/ADL's and IADL's. Transportation:?Pt states drives self and states no transportation concerns at this time.? Pt drives Vik. DME: Has a cane @ home that she uses PRN and has a nebulizer. HHC/SNF: No hx of either. Discussed discharge planning. Pt states she does not think she can go home alone and wishes to go to a SNF. She was provided w/SNF list that was prepared by Glenis, discharge social media assistant. Pt states [facility] is her 1[facility] preference, as her sister is there. [facility] is her 2nd choice. Glenis made aware and will sent referral to [facility]. PLAN:??SNF. Lynne BSN?RN?CM
[2023-08-23] MEDS: proMETHazine 25 MG/ML Syringe 12.5 MG IM (14:13)
--- NOTE | 2023-08-23 14:20 | CASEMGMT ---
Discharge Planning Referral sent via [facility] to [facility]. Glenis Mcgowan, Discharge Planning Asst.
--- NOTE | 2023-08-23 14:54 | PN.HOSP_ITS ---
Reason for Visit Reason for Visit: Diagnoses Nausea with vomiting, unspecified (08/22/23) Encounter for other preprocedural examination (08/22/23) Presence of left artificial knee joint (08/22/23) Objective Data Objective Data Vital Signs: Vital Signs Temp Pulse Resp BP Pulse Ox O2 Del Method O2 Flow Rate 98.1 F 69 18 146/69 H 98 Room Air 2 08/23/23 14:11 08/23/23 14:11 08/23/23 14:11 08/23/23 14:11 08/23/23 14:11 08/23/23 14:11 08/23/23 07:28 Oxygen Flow Rate (L/min) 2 Oxygen Delivery Method Room Air Weight: 190 lb 14.725 oz Body Mass Index (BMI) 34.9 Intake & Output: Intake and Output for Last 24 Hours 08/21/23 08/22/23 08/23/23 23:59 23:59 23:59 Intake Total 2736.08 / 2736.08 250 / 250 Balance 2736.08 / 2736.08 250 / 250 Lab / Micro Data 08/23/23 06:16 08/23/23 06:16 Labs: Laboratory Results - last 24 hr 08/22/23 17:43: POC Glucose 170 H 08/23/23 06:16: WBC 5.3, RBC 3.36 L, Hgb 9.5 L, Hct 31.1 L, MCV 92.6, MCH 28.3, MCHC 30.5 L, RDW Std Deviation 54.5 H, RDW Coeff of Josefina 16.0 H, Plt Count 148 L, MPV 10.7, Sodium 141, Potassium 4.2, Chloride 109 H, Carbon Dioxide 29.0, Anion Gap 3 L, BUN 8, Creatinine 0.72, Estim Creat Clear Calc 62.06, Est GFR (MDRD) Af Amer 101, Est GFR (MDRD) Non-Af 84, BUN/Creatinine Ratio 11.1, Glucose 136 H, Calcium 8.2 L Micro: Microbiology 07/31/23 08:38 Swab (Method) Nasal Screen MRSA/MSSA - Final Radiography Diagnostic Testing: Radiology Impression Knee X-Ray 08/22/23 16:10 IMPRESSION: Left knee prosthesis in anatomic alignment. Electronically Signed: Aidan Rodas MD at 18:38 EDT , Physical Exam Narrative Seen and examined. Patient complain of 12 out of 10 left knee pain after she had physical therapy in the morning. Voiding urine spontaneously. Passing flatus. Last BM yesterday before surgery. No fever Physical exam General: Alert, Oriented x3, Cooperative HEENT: Atraumatic, PERRLA, EOMI, Normocephalic Oral: Oral mucosa moist. No Gingival or Mucosal Lesions/ Ulcerations Neck: Supple, No JVD, Negative Carotid Bruits Chest wall/Lungs: Air entry diminished in bilateral lung bases. No crepitation/rhonchi Cardiovascular: Regular rate, Regular Rhythm, Normal S1, Normal S2, No M/G/R Abdomen: Bowel Sounds Present, Soft, Non Tender, Non-Distended : No dysuria. No renal angle tenderness. No suprapubic tenderness. Extremities: No edema, Capillary Refill Less than 3 Seconds Skin: No rashes, No breakdown Musculoskeletal: Left knee TKR with ice pack. Surgical dressing is dry. No Tenderness to Palpation of other joints or Extremities Neurological: Cranial nerves II-XII grossly intact, DTR 2+/4. No acute focal neurological deficit. Psych/Mental Status: Flat affect. Assessment & Plan Assessment/Plan (1) Nausea & vomiting: PLAN: Plan This is a 73-year-old female being admitted for elective left knee replacement for left knee primary knee osteoarthritis Nausea and vomiting * Postoperative. Suspect will continue to get better. * Continue with as needed Zofran Status post left knee replacement * Management per orthopedics * VTE prophylaxis per orthopedics with aspirin twice daily Chronic conditions * Hypertension: Continue losartan * Hypothyroidism: Continue levothyroxine * Diabetes: Continue with metformin For acute medical issues. Blood pressure and heart rate is controlled. No hypoxia or tachypnea. Patient is here and might need acute rehab as per Ortho. Charges/Coding Visit Charges Inpatient E&M: 55965 Subs Hosp L2
--- NOTE | 2023-08-23 15:42 | CASEMGMT ---
Met with pt to complete CRUMP form. CRUMP form explained to pt at this time who voiced understanding and signed form. Original form placed in pt?s chart and copy provided to the pt. Darius Olvera RN CM
--- NOTE | 2023-08-23 16:19 | CASEMGMT ---
Addendum entered by Gio Hurley 08/23/23 16:24: Correction, pt made aware to change/reschedule this appt w/Dr Adam, if she has not discharged from SNF yet. Original Note: JAZMINE VÁSQUEZ NOTE: DANNIELLE Mix, requests for PCP appt to be scheduled in 3-4 weeks w/repeat lab work. Call placed to Dr Kevin Adam's office and appt scheduled for 09/11/23 @ 11 AM. Pt made aware and this was placed in pt's discharge plan. Pt also made aware to cancel this appt w/Dr Adam if she has not discharged from SNF yet. She voices understanding. Lynne VILLEGAS RN CM
[2023-08-23] MEDS: Naproxen 500 MG Tablet PO (17:30)
[2023-08-23] MEDS: LORazepam 1 MG Tablet PO (22:07)
[2023-08-23] MEDS: Atorvastatin Calcium 20 MG Tablet PO (22:07)
[2023-08-24] VITALS (9 sets, daily range): BP systolic 125–145; BP diastolic 56–74; PULSE 59–72; RESP 16–18; TEMP 36.4–36.8; O2SAT 93–100
[2023-08-24] MEDS: oxyCODONE 5 MG Tablet PO ×4 (05:55→20:27)
[2023-08-24] MEDS: Levothyroxine 150 MCG Tablet PO (05:55)
[2023-08-24] MEDS: Acetaminophen 500 MG Tablet 1000 MG PO ×3 (06:05→20:29)
[2023-08-24 06:24] LABS: Hematocrit 32.3 % (37-47); Mean Corpuscular Hgb 28.5 pg (27.0-32.0); Mean Platelet Vol. 10.6 fl (6.2-12.0); Platelet Count 161 K/mm3 (150-450); RBC Distribution Width CV 16.2 % (11.6-14.6); RBC Distribution Width SD 54.4 fl (35.1-43.9); Red Blood Count 3.51 M/mm3 (4.2-5.4); White Blood Count 5.7 K/mm3 (4.4-11.0)
--- NOTE | 2023-08-24 06:38 | PCM.PN.ORT ---
Subjective Subjective The patient was sitting in bed upon examination. Patient denies any chest pain, shortness of breath, dizziness, lightheadedness, or vomiting, or calf pain. Patient still has occasional nausea. Pain is controlled on medications. No adverse overnight events. Patient has been working with therapy. She does have increased pain when weightbearing. We are awaiting pre-CERT for patient to go to [facility] postoperatively. Objective Data Objective Data Vital Signs: Vital Signs Temp Pulse Resp BP Pulse Ox O2 Del Method O2 Flow Rate 97.6 F L 64 16 145/74 H 100 Nasal Cannula 2 08/24/23 05:54 08/24/23 05:54 08/24/23 05:54 08/24/23 05:54 08/24/23 05:54 08/24/23 05:54 08/24/23 05:54 Oxygen Flow Rate (L/min) 2 Oxygen Delivery Method Nasal Cannula Weight: 86.6 kg Body Mass Index (BMI) 34.9 Intake & Output: Intake and Output for Last 24 Hours 08/22/23 08/23/23 08/24/23 23:59 23:59 23:59 Intake Total 2736.08 / 2736.08 450 / 450 200 / 200 Balance 2736.08 / 2736.08 450 / 450 200 / 200 Lab / Micro Data 08/24/23 06:10 08/23/23 06:16 Labs: Laboratory Results - last 24 hr 08/22/23 17:43: POC Glucose 170 H 08/23/23 06:16: WBC 5.3, RBC 3.36 L, Hgb 9.5 L, Hct 31.1 L, MCV 92.6, MCH 28.3, MCHC 30.5 L, RDW Std Deviation 54.5 H, RDW Coeff of Josefina 16.0 H, Plt Count 148 L, MPV 10.7, Sodium 141, Potassium 4.2, Chloride 109 H, Carbon Dioxide 29.0, Anion Gap 3 L, BUN 8, Creatinine 0.72, Estim Creat Clear Calc 62.06, Est GFR (MDRD) Af Amer 101, Est GFR (MDRD) Non-Af 84, BUN/Creatinine Ratio 11.1, Glucose 136 H, Calcium 8.2 L 08/24/23 06:10: WBC 5.7, RBC 3.51 L, Hgb 10.0 L, Hct 32.3 L, MCV 92.0, MCH 28.5, MCHC 31.0 L, RDW Std Deviation 54.4 H, RDW Coeff of Josefina 16.2 H, Plt Count 161, MPV 10.6 Micro: Microbiology 07/31/23 08:38 Swab (Method) Nasal Screen MRSA/MSSA - Final Physical Exam Narrative Vital signs stable and afebrile. She is breathing on room air in no distress SCDs and KELSEA hose are in place bilaterally Patient is able to plantarflex and dorsiflex actively. Sensation is intact to light touch to saphenous, sural, superficial and deep peroneal, and tibial distribution. Dressing is clean dry and intact. Negative Homans bilaterally, negative signs and symptoms of DVT. Const alert, oriented x3 and no apparent distress Assessment & Plan Assessment/Plan (1) Status post total left knee replacement: PLAN: 1. S/P left total knee arthroplasty POD #2 2. Continue Pain Medications: Tylenol, naproxen, and oxycodone. Patient states she does not tolerate meloxicam or Celebrex however she has taken other anti-inflammatories and done well. 3. DVT Prophylaxis: Take 81 mg aspirin twice daily for 4 weeks postoperatively for DVT prophylaxis. Patient denies past history of DVT or pulmonary embolism. 4. PT/OT: Weightbearing as tolerated with walker. Appreciate recommendations from physical therapy. There is concern with patient going home as she lives home alone and concern for fall risk. She is having increased pain and difficulty walking. 5. H & H: 10.0/32.3, asymptomatic. Preoperatively patient was started on our anemia protocol in which she takes ferrous sulfate and folic acid. Preoperatively her hemoglobin/hematocrit was 11.3/35.7. Patient has been followed in the past by her primary care physician in which she stopped iron. Patient reports that she has had a previous colonoscopy and upper GI exam in which it did not show any bleed. She has been using [id number] iron and folic acid. Patient will continue on ferrous sulfate 325 mg twice daily and folic acid 1 mg daily. I will have patient ultimately follow-up with the primary care physician in 3-4 weeks with repeat lab work and continued management of the anemia. 6. Currently on doxycycline for 2 weeks postoperatively due to A1c greater than 7.0 and staph positive screening. I discussed with the patient potential side effects of doxycycline including sensitivity to the sunlight and increased risk of skin burn. Recommend patient take appropriate precautions. Also recommend patient to take probiotic while on the antibiotic. Patient voiced understanding agreement. 7. Continue postoperative medical management per medicine 8. Encouraged Incentive Spirometry 9. Continue on stool softener: Take until first bowel movement, then as needed for constipation. We did discuss the possibility of constipation associated with iron supplementation. If she is having any complications she will contact our office. Patient states she has yet to have bowel movement. 10. Disposition: There is concern for discharge home from safety standpoint as patient is having increased pain and difficulty with walking. There is concern for fall risk. She lives home alone. Case management is currently involved with appropriate and safe discharge planning. We are awaiting pre-CERT from insurance on patient going to [facility]. Appreciate recommendations from physical therapy. Discussed with the patient all medications above which she will take postoperatively. We will plan for discharge to halfway facility and patient's narcotic medication will be placed on chart. Med rec will also be placed on chart. We did discuss upon discharge if she has any concerns or questions she is to reach out to our office. Case management has also scheduled follow-up with the primary care physician in 3 weeks. I have reviewed the [place] Automated Rx Reporting System (OARRS) report for this patient for refill pattern and other prescriber involvement as part of the appropriate surveillance for the provision of acute and chronic controlled medications. The report was requested and reviewed on the date of this entry and was considered in the prescribing process. This dictation was created using voice recognition software. Phonetic and/or grammatical errors may exist.
--- NOTE | 2023-08-24 06:42 | TREXTCAR_ITS ---
Diet Diet Order/Speech Therapy: 08/23/23 04:36 Diet: Regular - General Type of Dietary Supplement:: Glucerna Shake Is pt able to select menu?: Yes Diet Comments: pt requests chocolate glucerna with meals Routine Orders/Code Status Routine Lab Work: CBC (Repeat CBC 3 days) and BMP (Repeat BMP 3 days) Code Status: Full Code Wound(s) LEFT KNEE: Wound Type: Surgical Incision rt lee: Wound Type: Surgical Incision Dressing Change: AntiMicrobial (Aquacel AG, etc) (Okay to remove dressing on August 27, 2023. Okay for shower with dressing. Once dressing removed still okay to shower but only use gentle soap and water over the incision for 6 weeks postoperatively. No ointments on the incision for 6 weeks.) Left forearm: Wound Type: Skin Tear left lee: Wound Type: Surgical Incision Right forearm: Wound Type: Skin Tear Therapies Weight Bearing: Weight bearing as tolerated (With walker) Extremity Affected:: Left Lower Physical Therapy: Eval and Treat Occupational Therapy: Eval and Treat Problem/Diagnosis (1) Status post total left knee replacement: Status: Acute Code(s): Z96.652 - Presence of left artificial knee joint Plan: 1. S/P left total knee arthroplasty POD #2 2. Continue Pain Medications: Tylenol, naproxen, and oxycodone. Patient states she does not tolerate meloxicam or Celebrex however she has taken other anti- inflammatories and done well. 3. DVT Prophylaxis: Take 81 mg aspirin twice daily for 4 weeks postoperatively for DVT prophylaxis. Patient denies past history of DVT or pulmonary embolism. 4. PT/OT: Weightbearing as tolerated with walker. Appreciate recommendations from physical therapy. There is concern with patient going home as she lives home alone and concern for fall risk. She is having increased pain and difficulty walking. 5. H & H: 10.0/32.3, asymptomatic. Preoperatively patient was started on our anemia protocol in which she takes ferrous sulfate and folic acid. Preoperatively her hemoglobin/hematocrit was 11.3/35.7. Patient has been followed in the past by her primary care physician in which she stopped iron. Patient reports that she has had a previous colonoscopy and upper GI exam in which it did not show any bleed. She has been using [id number] iron and folic acid. Patient will continue on ferrous sulfate 325 mg twice daily and folic acid 1 mg daily. I will have patient ultimately follow-up with the primary care physician in 3-4 weeks with repeat lab work and continued management of the anemia. 6. Currently on doxycycline for 2 weeks postoperatively due to A1c greater than 7.0 and staph positive screening. I discussed with the patient potential side effects of doxycycline including sensitivity to the sunlight and increased risk of skin burn. Recommend patient take appropriate precautions. Also recommend patient to take probiotic while on the antibiotic. Patient voiced understanding agreement. 7. Continue postoperative medical management per medicine 8. Encouraged Incentive Spirometry 9. Continue on stool softener: Take until first bowel movement, then as needed for constipation. We did discuss the possibility of constipation associated with iron supplementation. If she is having any complications she will contact our office. Patient states she has yet to have bowel movement. 10. Disposition: There is concern for discharge home from safety standpoint as patient is having increased pain and difficulty with walking. There is concern for fall risk. She lives home alone. Case management is currently involved with appropriate and safe discharge planning. We are awaiting pre-CERT from insurance on patient going to [facility]. Appreciate recommendations from physical therapy. Discussed with the patient all medications above which she will take postoperatively. We will plan for discharge to [facility] and patient's narcotic medication will be placed on chart. Med rec will also be placed on chart. We did discuss upon discharge if she has any concerns or questions she is to reach out to our office. Case management has also scheduled follow-up with the primary care physician in 3 weeks. I have reviewed the [place] Automated Rx Reporting System (OARRS) report for this patient for refill pattern and other prescriber involvement as part of the appropriate surveillance for the provision of acute and chronic controlled medications. The report was requested and reviewed on the date of this entry an d was considered in the prescribing process. This dictation was created using voice recognition software. Phonetic and/or grammatical errors may exist. Allergies/Procedures Done in Hospital Allergies Sulfa (Sulfonamide Antibiotics) Allergy (Severe, Verified 08/22/23 07:59) Itching also irritates asthma meloxicam Allergy (Verified 08/22/23 07:59) Rash Procedures: - (Left total knee arthroplasty August 22, 2023) Type of Care/Length of Stay Estimated LOS: Convalescent Care Less Than 30 days Type of Care Needed: Skilled Rehab Potential: Good Prognosis: Good Dietary and Speech Recommendations Dietitian Recommendations/Changes: Recommend advance PO as tolerated to 1800 calorie/consistent carbohydrate; cardiac diet. Continue ensure surgery as ordered post-op. Discharge Plan Admission Admit Date/Time: 08/22/23 11:58 Attending Provider: Jb Issa Primary Care Provider: Kevin Adam Consulting Providers: Luis F Rouse Discharge Orders/Prescriptions Prescriptions: New acetaminophen 500 mg Tablet 1,000 mg PO Q8 Qty: 0 0RF Rx Instructions: Do not take more than 3000 mg Tylenol in a 24-hour period. doxycycline monohydrate 100 mg Capsule 100 mg PO BID 12 Days Qty: 0 0RF Rx Instructions: Take for 2 weeks postoperatively, stop date September 05, 2023 aspirin 81 mg Tablet,Chewable 81 mg PO BIDCM Qty: 0 0RF Rx Instructions: Take 81 mg aspirin twice daily for 4 weeks postoperatively for DVT prophylaxis. famotidine 20 mg Tablet 20 mg PO DAILY 30 Days Qty: 0 0RF Rx Instructions: Take for 4 weeks postoperatively while using the aspirin and nonsteroidal anti-inflammatory ferrous sulfate [FeroSul] 325 mg (65 mg iron) Tablet 325 mg PO 1200,1700 21 Days Qty: 42 0RF folic acid 1 mg Tablet 1 mg PO BREAKFAST 21 Days Qty: 0 0RF naproxen 500 mg Tablet 500 mg PO BIDCM 30 Days Qty: 60 0RF oxycodone 5 mg Tablet 5 - 10 mg PO Q4H PRN PRN (Reason: Pain Score 4-10) 7 Days Qty: 42 0RF Ensure Surgery 0.08-1.4 gram-kcal/mL Liquid 237 ml PO DAILY Qty: 0 0RF Rx Instructions: Take for 2 weeks postoperatively sennosides-docusate sodium [Stool Softener-Stimulant Laxat] 8.6-50 mg Tablet 2 tab PO BID Qty: 0 0RF Rx Instructions: Take until first bowel movement, then as needed for constipation ondansetron HCl 4 mg tablet 4 mg PO Q8H PRN (Reason: nausea and vomiting) Qty: 20 0RF Continued levothyroxine 150 mcg capsule 150 mcg PO DAILY albuterol sulfate [Ventolin HFA] 90 mcg/actuation HFA aerosol inhaler 2 puff inhalation Q6H PRN (Reason: shortness of breath or wheezing) ipratropium-albuterol 0.5 mg-3 mg(2.5 mg base)/3 mL solution for nebulization 3 ml inhalation TID PRN (Reason: shortness of breath or wheezing) losartan [Cozaar] 100 mg tablet 100 mg PO DAILY lorazepam [Ativan] 1 mg tablet 1 mg PO DAILY PRN (Reason: anxiety) montelukast [Singulair] 10 mg tablet 10 mg PO DAILY atorvastatin 20 mg tablet 20 mg PO DAILY fluticasone propion-salmeterol [Advair Diskus] 500-50 mcg/dose blister with device 1 inh inhalation BID cholecalciferol (vitamin D3) [Vitamin D3] 25 mcg (1,000 unit) capsule 25 mcg PO DAILY metformin 500 mg tablet 500 mg PO DAILY Discontinued oxycodone-acetaminophen 5-325 mg tablet 1 tab PO Q6H PRN (Reason: pain) Patient Comments: TAKE 1 TABLET BY MOUTH EVERY 6 HOURS NEEDED FOR PAIN Other Ambulatory Orders: 12 Lead EKG (Routine) Timeframe: [id number] Location: None Selected Ordered By: Dr. bJ Issa Referrals / Follow Up: Kevin Adam MD [Primary Care Provider] - 09/11/23 11:00 am Dominguez Cortez PA-C [Med Staff - [facility]] - 09/06/23 2:15 pm Disposition Disposition (needs filled in before D/C Order can be placed): [facility]
[2023-08-24 07:22] LABS: Anion Gap 3 (5-15); BUN 8 mg/dL (7-18); BUN/Creat Ratio 9.5 RATIO (10-20); Calcium,Total 8.4 mg/dL (8.5-10.1); Chloride 108 mmol/L (98-107); Creatinine, Serum 0.84 mg/dL (0.55-1.02); EST Glomerular Filtration Rate 70 mL/min (>60); Est Glom Filt Rate - Afr Amer 85 mL/min (>60); Estimated Creatinine Clearance 59.11 ml/min; Glucose 139 mg/dL (74-106); Potassium 4.1 mmol/L (3.5-5.1); Sodium Level 139 mmol/L (136-145)
[2023-08-24] MEDS: Albuterol 2.5 MG/3 ML VIAL.NEB. INHALATION ×3 (07:28→19:28)
[2023-08-24] MEDS: Budesonide Respules 0.5 MG/2 ML AMPUL.NEB. INHALATION ×2 (07:29→19:28)
[2023-08-24] MEDS: Morphine 2 MG/ML Syringe IV (08:45)
[2023-08-24] MEDS: metFORMIN HCl 500 MG Tablet PO (08:45)
[2023-08-24] MEDS: Folic Acid 1 MG Tablet PO (08:45)
[2023-08-24] MEDS: Naproxen 500 MG Tablet PO ×2 (08:50→16:52)
[2023-08-24] MEDS: Aspirin 81 MG TAB.CHEW PO ×2 (08:50→16:52)
--- NOTE | 2023-08-24 09:03 | NURSING ---
Patient admitted post op knee replacement, Patient alert and oriented times three, Patient upset due to pain level. Patient rated pain 8/10 at 0830 on 08/24/2023. dean for student affairs assisted with vitals, morning meds and breakfast. Morphine was administered at 0845 due to pt pain level. 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 Patient seated in chair and call light within reach. Kalin ARELLANO
[2023-08-24] MEDS: Senna/Docusate Sodium 1 Tablet 2 TABLET PO ×2 (09:53→20:28)
[2023-08-24] MEDS: Famotidine 20 MG Tablet PO (09:53)
[2023-08-24] MEDS: Doxycycline 100 MG CAPSULE PO ×2 (09:53→20:27)
[2023-08-24] MEDS: Montelukast 10 MG Tablet PO (09:56)
[2023-08-24] MEDS: Cholecalciferol (VIT D3) 25 MCG TABLET (1,000 UNITS) PO (09:56)
[2023-08-24] MEDS: Losartan Potassium 100 MG Tablet PO (09:59)
--- NOTE | 2023-08-24 10:15 | NURSING ---
Patient A/O x3 and pleasant. Patient pain level decreased post morphine admin to 3/10 instead of 8/10 at 0840. Patient meds documented and edited by nursing associate due to the final sign off not being implemented by nursing associate. Patient received all 0800 meds at 0850 on 08/23. Patient seated in bed and call light is within reach. Kalin ARELLANO
[2023-08-24] MEDS: Ferrous Sulfate 325 MG Tablet PO ×2 (10:55→16:52)
--- NOTE | 2023-08-24 15:00 | NURSING ---
I Mitzy Hansen, MSN, RN approve of all documentation from nursing tech Awilda Cruz.
--- NOTE | 2023-08-24 15:02 | NURSING ---
Medication was signed off; however, it had to be manually done due to not completing the process of final sign off.
--- NOTE | 2023-08-24 16:11 | PN.HOSP_ITS ---
Reason for Visit Reason for Visit: Diagnoses Nausea with vomiting, unspecified (08/22/23) Encounter for other preprocedural examination (08/22/23) Presence of left artificial knee joint (08/22/23) Objective Data Objective Data Vital Signs: Vital Signs Temp Pulse Resp BP Pulse Ox O2 Del Method O2 Flow Rate 97.9 F 63 16 129/60 H 100 Room Air 2 08/24/23 15:08/24/23 15:26 08/24/23 15:26 08/24/23 15:26 08/24/23 15:08/24/23 15:28 08/24/23 05:54 Oxygen Flow Rate (L/min) 2 Oxygen Delivery Method Room Air Weight: 190 lb 14.725 oz Body Mass Index (BMI) 34.9 Intake & Output: Intake and Output for Last 24 Hours 08/22/23 08/23/23 08/24/23 23:59 23:59 23:59 Intake Total 2736.08 / 2736.08 450 / 450 550 / 550 Balance 2736.08 / 2736.08 450 / 450 550 / 550 Lab / Micro Data 08/24/23 06:10 08/24/23 06:10 Labs: Laboratory Results - last 24 hr 08/24/23 06:10: WBC 5.7, RBC 3.51 L, Hgb 10.0 L, Hct 32.3 L, MCV 92.0, MCH 28.5, MCHC 31.0 L, RDW Std Deviation 54.4 H, RDW Coeff of Josefina 16.2 H, Plt Count 161, MPV 10.6, Sodium 139, Potassium 4.1, Chloride 108 H, Carbon Dioxide 28.0, Anion Gap 3 L, BUN 8, Creatinine 0.84, Estim Creat Clear Calc 59.11, Est GFR (MDRD) Af Amer 85, Est GFR (MDRD) Non-Af 70, BUN/Creatinine Ratio 9.5 L, Glucose 139 H, Calcium 8.4 L Micro: Microbiology 07/31/23 08:38 Swab (Method) Nasal Screen MRSA/MSSA - Final Physical Exam Narrative Seen and examined. Patient very tired and fatigued after physical therapy in the morning. Complain of pain. Otherwise no acute issues Voiding urine spontaneously. Passing flatus. Last BM yesterday before surgery. No fever Physical exam General: Alert, Oriented x3, Cooperative HEENT: Atraumatic, PERRLA, EOMI, Normocephalic Oral: Oral mucosa moist. No Gingival or Mucosal Lesions/ Ulcerations Neck: Supple, No JVD, Negative Carotid Bruits Chest wall/Lungs: Air entry diminished in bilateral lung bases. No crepitation/rhonchi Cardiovascular: Regular rate, Regular Rhythm, Normal S1, Normal S2, No M/G/R Abdomen: Bowel Sounds Present, Soft, Non Tender, Non-Distended : No dysuria. No renal angle tenderness. No suprapubic tenderness. Extremities: No edema, Capillary Refill Less than 3 Seconds Skin: Mild small bruise over left thigh above knee after TKA Musculoskeletal: Left knee TKR with ice pack. Surgical dressing is dry. No Tenderness to Palpation of other joints or Extremities Neurological: Cranial nerves II-XII grossly intact, DTR 2+/4. No acute focal neurological deficit. Psych/Mental Status: Flat affect. Assessment & Plan Assessment/Plan (1) Nausea & vomiting: PLAN: Plan This is a 73-year-old female being admitted for elective left knee replacement for left knee primary knee osteoarthritis Nausea and vomiting * Postoperative. Suspect will continue to get better. * Continue with as needed Zofran 08/23: Patient is doing good. No acute issues Status post left knee replacement * Management per orthopedics * VTE prophylaxis per orthopedics with aspirin twice daily 08/23: Patient has significant pain requiring morphine after physical therapy. Plan for discharge to rehab. Chronic conditions * Hypertension: Continue losartan * Hypothyroidism: Continue levothyroxine * Diabetes: Continue with metformin For acute medical issues. Blood pressure and heart rate is controlled. No hypoxia or tachypnea. Patient is here and might need acute rehab as per Ortho. Charges/Coding Visit Charges Inpatient E&M: 33943 Subs Hosp L2
--- NOTE | 2023-08-24 16:13 | CASEMGMT ---
Discharge Planning Several msgs via phone and [facility] sent to [facility]. No response has been received. Requested that [facility] update CarePort even if over the weekend. Glenis Mcgowan, Discharge Planning Asst.
--- NOTE | 2023-08-24 16:39 | CASEMGMT ---
Social Work SW let pt know that we are still waiting to hear back from [facility], will let her know if we hear anything on the weekend, but that pt will be here until we have an accepting facility and a precert. Pt states understanding. SW will continue to follow. ANGELES Dobbins
[2023-08-24] MEDS: Ensure Surgery 237 ML LIQUID PO (16:52)
[2023-08-24] MEDS: Atorvastatin Calcium 20 MG Tablet PO (20:27)
[2023-08-25] VITALS (9 sets, daily range): BP systolic 109–140; BP diastolic 59–83; PULSE 64–80; RESP 16–18; TEMP 36.5–36.8; O2SAT 93–99
[2023-08-25] MEDS: oxyCODONE 5 MG Tablet PO ×3 (02:55→16:57)
[2023-08-25] MEDS: Levothyroxine 150 MCG Tablet PO (05:54)
[2023-08-25] MEDS: Acetaminophen 500 MG Tablet 1000 MG PO ×3 (05:54→21:15)
[2023-08-25] MEDS: 0.9% Saline Lock 10 ML Syringe IV ×2 (05:54→10:36)
[2023-08-25] MEDS: Senna/Docusate Sodium 1 Tablet 2 TABLET PO ×2 (07:47→21:16)
[2023-08-25] MEDS: metFORMIN HCl 500 MG Tablet PO (07:47)
--- NOTE | 2023-08-25 07:47 | CASEMGMT ---
Social Work SW did receive a message back from [facility] stating that they can likely take pt but cannot check benefits until Sunday. SW sent message back in [facility] reiterating pt is ready for discharge. Pt will be here through the weekend, SW will follow up on Sunday. ANGELES Dobbins
[2023-08-25] MEDS: Cholecalciferol (VIT D3) 25 MCG TABLET (1,000 UNITS) PO (07:48)
[2023-08-25] MEDS: Losartan Potassium 100 MG Tablet PO (07:48)
[2023-08-25] MEDS: Montelukast 10 MG Tablet PO (07:48)
[2023-08-25] MEDS: Folic Acid 1 MG Tablet PO (07:48)
[2023-08-25] MEDS: Famotidine 20 MG Tablet PO (07:49)
[2023-08-25] MEDS: Budesonide Respules 0.5 MG/2 ML AMPUL.NEB. INHALATION ×2 (07:52→19:51)
[2023-08-25] MEDS: Albuterol 2.5 MG/3 ML VIAL.NEB. INHALATION ×3 (07:52→19:51)
[2023-08-25] MEDS: Ondansetron 4 MG/2 ML Vial IV (10:36)
[2023-08-25] MEDS: Naproxen 500 MG Tablet PO ×2 (10:38→16:59)
[2023-08-25] MEDS: Aspirin 81 MG TAB.CHEW PO ×2 (10:38→16:58)
[2023-08-25] MEDS: Doxycycline 100 MG CAPSULE PO ×2 (10:38→21:15)
--- NOTE | 2023-08-25 11:05 | CASEMGMT ---
Social Work SW did let pt know today that [facility] will likely take pt, and will look into insurance and precert Sunday. Pt states understanding. ANGELES Dobbins
--- NOTE | 2023-08-25 11:09 | PN.ORTHO_ITS ---
Subjective Subjective Patient continues to complain of nausea. She is not eating full meals. Has pain in the left knee. No chest pain or shortness of breath. No calf pain. No acute events. Limited mobility with therapy walking roughly 15 feet with guarded assistance. Objective Data Objective Data Vital Signs: Vital Signs Temp Pulse Resp BP Pulse Ox O2 Del Method O2 Flow Rate 98.0 F 65 17 109/83 H 93 Room Air 2 08/25/23 07:44 08/25/23 07:52 08/25/23 07:52 08/25/23 07:44 08/25/23 07:52 08/25/23 07:52 08/25/23 02:44 Oxygen Flow Rate (L/min) 2 Oxygen Delivery Method Room Air Weight: 190 lb 14.725 oz Body Mass Index (BMI) 34.9 Intake & Output: Intake and Output for Last 24 Hours 08/23/23 08/24/23 08/25/23 23:59 23:59 23:59 Intake Total 450 / 450 750 / 750 200 / 200 Balance 450 / 450 750 / 750 200 / 200 Lab / Micro Data Attestation: I reviewed the patient's lab results. 08/24/23 06:10 08/24/23 06:10 Micro: Microbiology 07/31/23 08:38 Swab (Method) Nasal Screen MRSA/MSSA - Final Physical Exam Const alert, oriented x3 and no apparent distress Constitutional Narrative: Eating applesauce Extremity Extremity Narrative: Left lower extremity: Dressing is clean dry and intact Sensations intact to light touch saphenous, sural, superficial peroneal, deep peroneal, and tibial distributions Motors intact EHL, DF, PF calves are soft and supple Assessment & Plan Assessment/Plan (1) Status post total left knee replacement: PLAN: 1. S/P left total knee arthroplasty POD #3 2. Continue Pain Medications: Tylenol, naproxen, and oxycodone. Patient states she does not tolerate meloxicam or Celebrex however she has taken other anti- inflammatories and done well. 3. DVT Prophylaxis: Take 81 mg aspirin twice daily for 4 weeks postoperatively for DVT prophylaxis. Patient denies past history of DVT or pulmonary embolism. 4. PT/OT: Weightbearing as tolerated with walker. Appreciate recommendations from physical therapy. There is concern with patient going home as she lives home alone and concern for fall risk. She is having increased pain and diffic ulty walking. Walking roughly 15 feet with guard assist. 5. H & H: Most recent labs 10.0/32.3, asymptomatic. Preoperatively patient was started on our anemia protocol in which she takes ferrous sulfate and folic acid. Preoperatively her hemoglobin/hematocrit was 11.3/35.7. No significant changes recommended today 6. Currently on doxycycline for 2 weeks postoperatively due to A1c greater than 7.0 and staph positive screening. I discussed with the patient potential side effects of doxycycline including sensitivity to the sunlight and increased risk of skin burn. Recommend patient take appropriate precautions. Also recommend patient to take probiotic while on the antibiotic. Patient voiced understanding agreement. 7. Continue postoperative medical management per medicine 8. Encouraged Incentive Spirometry 9. Continue on stool softener: Take until first bowel movement, then as needed for constipation. We did discuss the possibility of constipation associated with iron supplementation. If she is having any complications she will contact our office. Patient states she has yet to have bowel movement. 10. Disposition: There is concern for discharge home from safety standpoint as patient is having increased pain and difficulty with walking. There is concern for fall risk. She lives home alone and has had not limited mobility with physical therapy. Case management is currently involved with appropriate and safe discharge planning. We are awaiting pre-CERT from insurance on patient going to [facility] nursing [facility]. Just received word last evening that [facility] patient. Will need to await for normal business hours to obtain insurance precertification. Appreciate recommendations from physical therapy. Discussed with the patient all medications above which she will take postoperatively. [facility] and patient's narcotic medication will be placed on chart. Med rec will also be placed on chart. We did discuss upon discharge if she has any concerns or questions she is to reach out to our office. Case management has also scheduled follow-up with the primary care physician in 3 weeks. I have reviewed the [place] Automated Rx Reporting System (OARRS) report for this patient for refill pattern and other prescriber involvement as part of the appropriate surveillance for the provision of acute and chronic controlled medications. The report was requested and reviewed on the date of this entry and was considered in the prescribing process. This dictation was created using voice recognition software. Phonetic and/or grammatical errors may exist.
[2023-08-25] MEDS: Ensure Surgery 237 ML LIQUID PO (11:56)
[2023-08-25] MEDS: Ferrous Sulfate 325 MG Tablet PO ×2 (11:56→16:58)
--- NOTE | 2023-08-25 12:52 | NURSING ---
Pt requested a breathing treatment, PNS notified.
--- NOTE | 2023-08-25 15:39 | PN.HOSP_ITS ---
Reason for Visit Reason for Visit: Diagnoses Nausea with vomiting, unspecified (08/22/23) Encounter for other preprocedural examination (08/22/23) Presence of left artificial knee joint (08/22/23) Objective Data Objective Data Vital Signs: Vital Signs Temp Pulse Resp BP Pulse Ox O2 Del Method O2 Flow Rate 98.3 F 70 18 125/59 H 97 Room Air 2 08/25/23 15:27 08/25/23 15:31 08/25/23 15:27 08/25/23 15:27 08/25/23 15:27 08/25/23 15:31 08/25/23 02:44 Oxygen Flow Rate (L/min) 2 Oxygen Delivery Method Room Air Weight: 190 lb 14.725 oz Body Mass Index (BMI) 34.9 Intake & Output: Intake and Output for Last 24 Hours 08/23/23 08/24/23 08/25/23 23:59 23:59 23:59 Intake Total 450 / 450 750 / 750 200 / 200 Balance 450 / 450 750 / 750 200 / 200 Lab / Micro Data 08/24/23 06:10 08/24/23 06:10 Micro: Microbiology 07/31/23 08:38 Swab (Method) Nasal Screen MRSA/MSSA - Final Physical Exam Narrative Seen and examined. Patient very tired and fatigued after physical therapy in the morning. Complain of pain. She had morphine and little bit drowsy and nausea. Patient want about 15 feet with guarded assistance. Voiding urine spontaneously. Passing flatus. No fever Physical exam General: Awake, little groggy from morphine. Oriented x3, Cooperative HEENT: Atraumatic, PERRLA, EOMI, Normocephalic Oral: Oral mucosa moist. No Gingival or Mucosal Lesions/ Ulcerations Neck: Supple, No JVD, Negative Carotid Bruits Chest wall/Lungs: Air entry diminished in bilateral lung bases. No crepitation/rhonchi Cardiovascular: Regular rate, Regular Rhythm, Normal S1, Normal S2, No M/G/R Abdomen: Bowel Sounds Present, Soft, Non Tender, Non-Distended : No dysuria. No renal angle tenderness. No suprapubic tenderness. Extremities: No edema, Capillary Refill Less than 3 Seconds Skin: Mild small bruise over left thigh above knee after TKA Musculoskeletal: Left knee TKR with ice pack. Surgical dressing is dry. No Tenderness to Palpation of other joints or Extremities Neurological: Cranial nerves II-XII grossly intact, DTR 2+/4. No acute focal neurological deficit. Psych/Mental Status: Flat affect. Assessment & Plan Assessment/Plan (1) Nausea & vomiting: PLAN: Plan This is a 73-year-old female being admitted for elective left knee replacement for left knee primary knee osteoarthritis Nausea and vomiting * Postoperative. Suspect will continue to get better. * Continue with as needed Zofran 08/23: Patient is doing good. No acute issues 08/24: On supportive treatment with antiemetics. Status post left knee replacement * Management per orthopedics * VTE prophylaxis per orthopedics with aspirin twice daily 08/23: Patient has significant pain requiring morphine after physical therapy. Plan for discharge to rehab. 08/24: Patient had only 15 feet and guarded desisted and therefore will need rehab Chronic conditions * Hypertension: Continue losartan * Hypothyroidism: Continue levothyroxine * Diabetes: Continue with metformin For acute medical issues. Blood pressure and heart rate is controlled. No hypoxia or tachypnea. Patient is here and might need acute rehab as per Ortho. Charges/Coding Visit Charges Inpatient E&M: 57720 Subs Hosp L2
[2023-08-25] MEDS: Pantoprazole Sodium 40 MG Tablet PO (18:45)
[2023-08-25] MEDS: Atorvastatin Calcium 20 MG Tablet PO (21:15)
[2023-08-26] VITALS (8 sets, daily range): BP systolic 136–147; BP diastolic 66–74; PULSE 61–83; RESP 16–18; TEMP 36.4–36.6; O2SAT 97–99
[2023-08-26] MEDS: oxyCODONE 5 MG Tablet PO ×4 (02:48→19:57)
[2023-08-26] MEDS: Levothyroxine 150 MCG Tablet PO (05:17)
[2023-08-26] MEDS: Acetaminophen 500 MG Tablet 1000 MG PO ×3 (05:17→20:53)
[2023-08-26] MEDS: Albuterol 2.5 MG/3 ML VIAL.NEB. INHALATION ×3 (07:43→19:41)
[2023-08-26] MEDS: Budesonide Respules 0.5 MG/2 ML AMPUL.NEB. INHALATION ×2 (07:44→19:41)
[2023-08-26] MEDS: Senna/Docusate Sodium 1 Tablet 2 TABLET PO ×2 (08:07→20:53)
[2023-08-26] MEDS: Montelukast 10 MG Tablet PO (08:07)
[2023-08-26] MEDS: Pantoprazole Sodium 40 MG Tablet PO (08:07)
[2023-08-26] MEDS: metFORMIN HCl 500 MG Tablet PO (08:08)
[2023-08-26] MEDS: Doxycycline 100 MG CAPSULE PO ×2 (08:08→20:53)
[2023-08-26] MEDS: Cholecalciferol (VIT D3) 25 MCG TABLET (1,000 UNITS) PO (08:08)
[2023-08-26] MEDS: Naproxen 500 MG Tablet PO ×2 (08:08→17:12)
[2023-08-26] MEDS: Losartan Potassium 100 MG Tablet PO (08:08)
[2023-08-26] MEDS: Famotidine 20 MG Tablet PO (08:08)
[2023-08-26] MEDS: Aspirin 81 MG TAB.CHEW PO ×2 (08:08→17:12)
[2023-08-26] MEDS: Folic Acid 1 MG Tablet PO (08:09)
[2023-08-26] MEDS: Polyethylene Glycol 3350 17 GM PACKET PO (10:27)
--- NOTE | 2023-08-26 11:55 | PN.HOSP_ITS ---
Reason for Visit Reason for Visit: Diagnoses Nausea with vomiting, unspecified (08/22/23) Encounter for other preprocedural examination (08/22/23) Presence of left artificial knee joint (08/22/23) Objective Data Objective Data Vital Signs: Vital Signs Temp Pulse Resp BP Pulse Ox O2 Del Method O2 Flow Rate 97.7 F L 63 16 145/74 H 97 Room Air 2 08/26/23 11:23 08/26/23 11:23 08/26/23 11:23 08/26/23 11:23 08/26/23 11:23 08/26/23 11:23 08/25/23 02:44 Oxygen Flow Rate (L/min) 2 Oxygen Delivery Method Room Air Weight: 190 lb 14.725 oz Body Mass Index (BMI) 34.9 Intake & Output: Intake and Output for Last 24 Hours 08/24/23 08/25/23 08/26/23 23:59 23:59 23:59 Intake Total 750 / 750 200 / 200 Balance 750 / 750 200 / 200 Lab / Micro Data 08/24/23 06:10 08/24/23 06:10 Micro: Microbiology 07/31/23 08:38 Swab (Method) Nasal Screen MRSA/MSSA - Final Physical Exam Narrative Seen and examined. Still complains of severe pain. Getting physical therapy daily. Patient want about 15 feet with guarded assistance. Voiding urine spontaneously. Passing flatus. No fever. Did not had bowel movement after surgery. Physical exam General: Awake, alert, oriented x3, Cooperative HEENT: Atraumatic, PERRLA, EOMI, Normocephalic Oral: Oral mucosa moist. No Gingival or Mucosal Lesions/ Ulcerations Neck: Supple, No JVD, Negative Carotid Bruits Chest wall/Lungs: Air entry diminished in bilateral lung bases. No crepitation/rhonchi Cardiovascular: Regular rate, Regular Rhythm, Normal S1, Normal S2, No M/G/R Abdomen: Bowel Sounds Present, Soft, Non Tender, Non-Distended : No dysuria. No renal angle tenderness. No suprapubic tenderness. Extremities: No edema, Capillary Refill Less than 3 Seconds Skin: Mild small bruise over left thigh above knee after TKA Musculoskeletal: Left knee TKR with ice pack. Surgical dressing is dry. No Tenderness to Palpation of other joints or Extremities Neurological: Cranial nerves II-XII grossly intact, DTR 2+/4. No acute focal neurological deficit. Psych/Mental Status: Flat affect. Assessment & Plan Assessment/Plan (1) Nausea & vomiting: PLAN: Plan This is a 73-year-old female being admitted for elective left knee replacement for left knee primary knee osteoarthritis Nausea and vomiting * Postoperative. Suspect will continue to get better. * Continue with as needed Zofran 08/23: Patient is doing good. No acute issues 08/24: On supportive treatment with antiemetics. Status post left knee replacement * Management per orthopedics * VTE prophylaxis per orthopedics with aspirin twice daily 08/23: Patient has significant pain requiring morphine after physical therapy. Plan for discharge to rehab. 08/24: Patient had only 15 feet and guarded desisted and therefore will need rehab Constipation: 08/25: Patient not in bowel movement despite being on senna S. Started on MiraLAX 17 g twice daily and Metamucil. Hold for liquid BM or diarrhea or more than 2 BM per day Chronic conditions * Hypertension: Continue losartan * Hypothyroidism: Continue levothyroxine * Diabetes: Continue with metformin For acute medical issues. Blood pressure and heart rate is controlled. No hypoxia or tachypnea. Patient is here and might need acute rehab as per Ortho. Charges/Coding Visit Charges Inpatient E&M: 16726 Subs Hosp L2
[2023-08-26] MEDS: Ondansetron 4 MG/2 ML Vial IV (12:32)
[2023-08-26] MEDS: 0.9% Saline Lock 10 ML Syringe IV (12:32)
[2023-08-26] MEDS: Psyllium 1 PACKET PO (12:38)
--- NOTE | 2023-08-26 12:41 | PN.ORTHO_ITS ---
Subjective Subjective Patient overall doing well. Did have constipation this morning when internal medicine rounded on her. She reports bowel movement at this time. Continues to require contact-guard with occupational therapy today only walking 15 feet. Objective Data Objective Data Vital Signs: Vital Signs Temp Pulse Resp BP Pulse Ox O2 Del Method O2 Flow Rate 97.7 F L 63 16 145/74 H 97 Room Air 2 08/26/23 11:23 08/26/23 11:23 08/26/23 11:23 08/26/23 11:23 08/26/23 11:23 08/26/23 11:23 08/25/23 02:44 Oxygen Flow Rate (L/min) 2 Oxygen Delivery Method Room Air Weight: 190 lb 14.725 oz Body Mass Index (BMI) 34.9 Intake & Output: Intake and Output for Last 24 Hours 08/24/23 08/25/23 08/26/23 23:59 23:59 23:59 Intake Total 750 / 750 200 / 200 Balance 750 / 750 200 / 200 Lab / Micro Data 08/24/23 06:10 08/24/23 06:10 Micro: Microbiology 07/31/23 08:38 Swab (Method) Nasal Screen MRSA/MSSA - Final Physical Exam Const alert and oriented x3 Extremity Extremity Narrative: Left lower extremity: Dressing is clean dry and intact Sensations intact to light touch saphenous, sural, superficial peroneal, deep p eroneal, and tibial distributions Motors intact EHL, DF, PF calves are soft and supple Assessment & Plan Assessment/Plan (1) Status post total left knee replacement: PLAN: 1. S/P left total knee arthroplasty POD #4 2. Continue Pain Medications: Tylenol, naproxen, and oxycodone. Patient states she does not tolerate meloxicam or Celebrex however she has taken other anti- inflammatories and done well. 3. DVT Prophylaxis: Take 81 mg aspirin twice daily for 4 weeks postoperatively for DVT prophylaxis. Patient denies past history of DVT or pulmonary embolism. 4. PT/OT: Weightbearing as tolerated with walker. Appreciate recommendations from physical therapy. There is concern with patient going home as she lives [place] alone and concern for fall risk. She is having increased pain and difficulty walking. Walking roughly 15 feet with contact guard assist with Ot today. 5. H & H: Most recent labs stable, asymptomatic. Preoperatively patient was started on our anemia protocol in which she takes ferrous sulfate and folic acid. Preoperatively her hemoglobin/hematocrit was 11.3/35.7. No significant changes recommended today 6. Currently on doxycycline for 2 weeks postoperatively due to A1c greater than 7.0 and staph positive screening. I discussed with the patient potential side effects of doxycycline including sensitivity to the sunlight and increased risk of skin burn. Recommend patient take appropriate precautions. Also recommend patient to take probiotic while on the antibiotic. Patient voiced understanding agreement. 7. Continue postoperative medical management per medicine 8. Encouraged Incentive Spirometry 9. Continue on stool softener: Take until first bowel movement, then as needed for constipation. We did discuss the possibility of constipation associated with iron supplementation. If she is having any complications she will contact our office. Patient states she has yet to have bowel movement. 10. Disposition: There is concern for discharge home from safety standpoint as patient is having increased pain and difficulty with walking. There is concern for fall risk. She lives home alone and has had not limited mobility with physical therapy. Case management is currently involved with appropriate and safe discharge planning. We are awaiting pre-CERT from insurance on patient going to [facility] nursing [facility]. Just received word last evening that [facility]. Will need to await for normal business hours to obtain insurance precertification. Appreciate recommendations from physical therapy. Discussed with the patient all medications above which she will take postoperatively. We will plan for discharge to [facility] facility and patient's narcotic medication will be placed on chart. Med rec will also be placed on chart. We did discuss upon discharge if she has any concerns or questions she is to reach out to our office. Case management has also scheduled follow-up with the primary care physician in 3 weeks. I have reviewed the [place] Automated Rx Reporting System (OARRS) report for this patient for refill pattern and other prescriber involvement as part of the appropriate surveillance for the provision of acute and chronic controlled medications. The report was requested and reviewed on the date of this entry and was considered in the prescribing process. This dictation was created using voice recognition software. Phonetic and/or grammatical errors may exist.
[2023-08-26] MEDS: Ferrous Sulfate 325 MG Tablet PO (17:12)
[2023-08-26] MEDS: Atorvastatin Calcium 20 MG Tablet PO (20:53)
[2023-08-27] VITALS (8 sets, daily range): BP systolic 137–149; BP diastolic 56–61; PULSE 63–79; RESP 16–18; TEMP 36.6–36.9; O2SAT 96–99
[2023-08-27] MEDS: Acetaminophen 500 MG Tablet 1000 MG PO ×3 (05:10→21:15)
[2023-08-27] MEDS: Levothyroxine 150 MCG Tablet PO (05:10)
[2023-08-27] MEDS: oxyCODONE 5 MG Tablet PO ×5 (05:10→20:06)
[2023-08-27] MEDS: Albuterol 2.5 MG/3 ML VIAL.NEB. INHALATION ×4 (06:45→18:57)
[2023-08-27] MEDS: Budesonide Respules 0.5 MG/2 ML AMPUL.NEB. INHALATION ×2 (06:46→18:57)
[2023-08-27] MEDS: Naproxen 500 MG Tablet PO ×2 (07:30→16:09)
[2023-08-27] MEDS: Aspirin 81 MG TAB.CHEW PO ×2 (07:30→16:06)
[2023-08-27] MEDS: Folic Acid 1 MG Tablet PO (07:30)
[2023-08-27] MEDS: metFORMIN HCl 500 MG Tablet PO (07:30)
--- NOTE | 2023-08-27 09:38 | CASEMGMT ---
Social Work- Clinical updates provided to [facility] to provide additional requested information. Plan: [facility] pending precert RADHA Larkin
[2023-08-27] MEDS: Losartan Potassium 100 MG Tablet PO (10:36)
[2023-08-27] MEDS: Psyllium 1 PACKET PO (10:37)
[2023-08-27] MEDS: Doxycycline 100 MG CAPSULE PO ×2 (10:37→21:16)
[2023-08-27] MEDS: Cholecalciferol (VIT D3) 25 MCG TABLET (1,000 UNITS) PO (10:38)
[2023-08-27] MEDS: Montelukast 10 MG Tablet PO (10:38)
[2023-08-27] MEDS: Famotidine 20 MG Tablet PO (10:38)
[2023-08-27] MEDS: Polyethylene Glycol 3350 17 GM PACKET PO ×2 (10:38→21:17)
[2023-08-27] MEDS: Senna/Docusate Sodium 1 Tablet 2 TABLET PO ×2 (10:38→21:15)
[2023-08-27] MEDS: Pantoprazole Sodium 40 MG Tablet PO (10:39)
--- NOTE | 2023-08-27 11:41 | PCM.PN.ORT ---
Subjective Subjective Patient sitting at bedside eating lunch. Patient states her knee has been painful but well-managed. Denies chest pain, shortness of breath, calf pain, nausea vomiting. Patient is anxious to be discharged to ECF, or therapy, waiting on insurance approval Objective Data Objective Data Vital Signs: Vital Signs Temp Pulse Resp BP Pulse Ox O2 Del Method O2 Flow Rate 98.0 F 63 16 149/61 H 98 Room Air 2 08/27/23 10:19 08/27/23 10:19 08/27/23 10:19 08/27/23 10:19 08/27/23 10:19 08/27/23 10:19 08/25/23 02:44 Oxygen Flow Rate (L/min) 2 Oxygen Delivery Method Room Air Weight: 86.6 kg Body Mass Index (BMI) 34.9 Intake & Output: Intake and Output for Last 24 Hours 08/25/23 08/26/23 08/27/23 23:59 23:59 23:59 Intake Total 200 / 200 Balance 200 / 200 Lab / Micro Data 08/24/23 06:10 08/24/23 06:10 Micro: Microbiology 07/31/23 08:38 Swab (Method) Nasal Screen MRSA/MSSA - Final Physical Exam Narrative Exam, I found patient sitting comfortably at bedside eating lunch. Patient in no respiratory distress, speaking in full sentences. Full range of motion of the upper extremities without limitations good muscle tone and strength. Exam of the left leg I found no significant swelling or ecchymosis over the left thigh region. Patient's dressing was clean dry intact. Patient has extension lacking 4 degrees, flexion to 90 degrees with pain. No calf tenderness. Neurovascular is otherwise intact. Const alert and oriented x3 HEENT normocephalic Eyes PERRL Resp normal respiratory effort Effort and Inspection: able to speak in complete sentences Extremity normal capillary refill Neuro CN's II-XII intact bilaterally Psych mental status grossly normal Assessment & Plan Assessment/Plan (1) Status post total left knee replacement: PLAN: 1. Continue all pain medications as prescribed 2. Aspirin 81 mg 1 p.o. every 12 hours x 30 days for postop DVT prophylaxis 3. Encourage incentive spirometry 4. Continue ice, KELSEA hose, SCDs 5. Continue physical therapy, weight-bear as tolerated with walker 6. Patient to be discharged to ECF/outpatient rehab when approval by the insurance company has been obtained
[2023-08-27] MEDS: Ferrous Sulfate 325 MG Tablet PO ×2 (11:48→16:06)
--- NOTE | 2023-08-27 13:30 | CASEMGMT ---
Social Work SW completed the PAS/RR in the [employer] system, no further review needed at this time. ANGELES Dobbins
--- NOTE | 2023-08-27 16:08 | PN.HOSP_ITS ---
Reason for Visit Reason for Visit: Diagnoses Nausea with vomiting, unspecified (08/22/23) Encounter for other preprocedural examination (08/22/23) Presence of left artificial knee joint (08/22/23) Objective Data Objective Data Vital Signs: Vital Signs Temp Pulse Resp BP Pulse Ox O2 Del Method O2 Flow Rate 98.5 F 65 16 137/56 H 99 Room Air 2 08/27/23 13:46 08/27/23 13:46 08/27/23 13:46 08/27/23 13:46 08/27/23 13:46 08/27/23 13:46 08/25/23 02:44 Oxygen Flow Rate (L/min) 2 Oxygen Delivery Method Room Air Weight: 190 lb 14.725 oz Body Mass Index (BMI) 34.9 Intake & Output: Intake and Output for Last 24 Hours 08/25/23 08/26/23 08/27/23 23:59 23:59 23:59 Intake Total 200 / 200 Balance 200 / 200 Lab / Micro Data 08/24/23 06:10 08/24/23 06:10 Micro: Microbiology 07/31/23 08:38 Swab (Method) Nasal Screen MRSA/MSSA - Final Physical Exam Narrative Seen and examined. Patient had 2-3 times a small bowel movement. She still feels dyspeptic symp toms, felt like has not completely emptied her bowel. Complain of severe pain during and after physical therapy. Patient want about 15 feet with guarded assistance. Voiding urine spontaneously. Passing flatus. No fever. Physical exam General: Awake, alert, oriented x3, Cooperative HEENT: Atraumatic, PERRLA, EOMI, Normocephalic Oral: Oral mucosa moist. No Gingival or Mucosal Lesions/ Ulcerations Neck: Supple, No JVD, Negative Carotid Bruits Chest wall/Lungs: Air entry diminished in bilateral lung bases. No crepitation/rhonchi Cardiovascular: Regular rate, Regular Rhythm, Normal S1, Normal S2, No M/G/R Abdomen: Bowel Sounds Present, Soft, Non Tender, Non-Distended. No palpable mass. : No dysuria. No renal angle tenderness. No suprapubic tenderness. Extremities: No edema, Capillary Refill Less than 3 Seconds Skin: Mild small bruise over left thigh above knee after TKA Musculoskeletal: Left knee TKR with ice pack. Surgical dressing is dry. No Tenderness to Palpation of other joints or Extremities Neurological: Cranial nerves II-XII grossly intact, DTR 2+/4. No acute focal neurological deficit. Psych/Mental Status: Flat affect. Assessment & Plan Assessment/Plan (1) Nausea & vomiting: PLAN: Plan This is a 73-year-old female being admitted for elective left knee replacement for left knee primary knee osteoarthritis Nausea and vomiting * Postoperative. Suspect will continue to get better. * Continue with as needed Zofran 08/23: Patient is doing good. No acute issues 08/24: On supportive treatment with antiemetics. Status post left knee replacement * Management per orthopedics * VTE prophylaxis per orthopedics with aspirin twice daily 08/23: Patient has significant pain requiring morphine after physical therapy. Plan for discharge to rehab. 08/24: Patient had only 15 feet and guarded desisted and therefore will need rehab 08/26: Discussed with the mattress spring encaser. Pre-CERT pending. Constipation: 08/25: Patient not in bowel movement despite being on senna S. Started on MiraLAX 17 g twice daily and Metamucil. Hold for liquid BM or diarrhea or more than 2 BM per day 08/26: Patient moving her bowel. Continue the regimen. Chronic conditions * Hypertension: Continue losartan * Hypothyroidism: Continue levothyroxine * Diabetes: Continue with metformin For acute medical issues. Blood pressure and heart rate is controlled. No hypoxia or tachypnea. Patient is here and might need acute rehab as per Ortho. Charges/Coding Visit Charges Inpatient E&M: 61343 Subs Hosp L2
[2023-08-27] MEDS: 0.9% Saline Lock 10 ML Syringe IV (16:21)
[2023-08-27] MEDS: LORazepam 1 MG Tablet PO (16:36)
[2023-08-27] MEDS: Atorvastatin Calcium 20 MG Tablet PO (21:16)
[2023-08-28 03:46] VITALS: BP 148/58; PULSE 60; RESP 16; TEMP 36.4; O2SAT 100
[2023-08-28] MEDS: Levothyroxine 150 MCG Tablet PO (05:07)
[2023-08-28] MEDS: Acetaminophen 500 MG Tablet 1000 MG PO ×3 (05:07→20:14)
[2023-08-28] MEDS: oxyCODONE 5 MG Tablet PO ×4 (05:07→19:50)
[2023-08-28] MEDS: Albuterol 2.5 MG/3 ML VIAL.NEB. INHALATION ×2 (07:24→19:23)
[2023-08-28] MEDS: Budesonide Respules 0.5 MG/2 ML AMPUL.NEB. INHALATION ×2 (07:24→19:23)
[2023-08-28 07:25] VITALS: PULSE 70; RESP 18; O2SAT 94
[2023-08-28 07:55] VITALS: BP 135/55; PULSE 66; RESP 16; TEMP 36.6; O2SAT 97
[2023-08-28] MEDS: Folic Acid 1 MG Tablet PO (08:05)
[2023-08-28] MEDS: Aspirin 81 MG TAB.CHEW PO ×2 (08:05→17:12)
[2023-08-28] MEDS: Naproxen 500 MG Tablet PO ×2 (08:05→17:11)
[2023-08-28] MEDS: metFORMIN HCl 500 MG Tablet PO (08:06)
[2023-08-28] MEDS: Losartan Potassium 100 MG Tablet PO (09:17)
[2023-08-28] MEDS: Doxycycline 100 MG CAPSULE PO ×2 (09:18→20:14)
[2023-08-28] MEDS: Polyethylene Glycol 3350 17 GM PACKET PO ×2 (09:19→20:17)
[2023-08-28] MEDS: Famotidine 20 MG Tablet PO (09:21)
[2023-08-28] MEDS: Pantoprazole Sodium 40 MG Tablet PO (09:22)
[2023-08-28] MEDS: Montelukast 10 MG Tablet PO (09:23)
[2023-08-28] MEDS: Senna/Docusate Sodium 1 Tablet 2 TABLET PO ×2 (09:23→20:14)
[2023-08-28] MEDS: Cholecalciferol (VIT D3) 25 MCG TABLET (1,000 UNITS) PO (09:25)
--- NOTE | 2023-08-28 10:10 | CASEMGMT ---
Social Work- sent clinical updates to Elmer Vanessa per request. RADHA Colon
--- NOTE | 2023-08-28 12:10 | PCM.PN.ORT ---
Subjective Subjective Patient lying in bed. Patient states pain has been well-managed. She states she is very tired as she just finished physical therapy. Patient does states she has some mild nausea. She denies any chest pain, shortness of breath, no calf pain. Objective Data Objective Data Vital Signs: Vital Signs Temp Pulse Resp BP Pulse Ox O2 Del Method O2 Flow Rate 97.9 F 66 16 135/55 H 97 Room Air 2 08/28/23 07:55 08/28/23 07:55 08/28/23 07:55 08/28/23 07:55 08/28/23 07:55 08/28/23 07:58 08/28/23 03:46 Oxygen Flow Rate (L/min) 2 Oxygen Delivery Method Room Air Weight: 86.6 kg Body Mass Index (BMI) 34.9 Intake & Output: Intake and Output for Last 24 Hours 08/26/23 08/27/23 08/28/23 23:59 23:59 23:59 Intake Total 200 / 200 200 / 200 Balance 200 / 200 200 / 200 Lab / Micro Data 08/24/23 06:10 08/24/23 06:10 Micro: Microbiology 07/31/23 08:38 Swab (Method) Nasal Screen MRSA/MSSA - Final Physical Exam Narrative Patient lying in bed resting comfortably. Patient in no respiratory distress. Speaking full sentences. Full range of motion the upper extremities. Nursing had removed her dressing from her left knee. The incision is healing very nicely sutures are intact both over the left knee as well as the stab incisions in the midshaft tibia. Patient had flexion to 90 degrees with pain. No calf tenderness. Good plantarflexion dorsiflexion of the foot. Neurovascular is otherwise intact. Const alert and oriented x3 General Appearance: cooperative Eyes PERRL Resp normal respiratory effort Effort and Inspection: able to speak in complete sentences Extremity normal capillary refill Skin no rashes or lesions noted Neuro CN's II-XII intact bilaterally Psych mental status grossly normal Assessment & Plan Assessment/Plan (1) Status post total left knee replacement: PLAN: 1. Continue all pain medications as prescribed 2. Aspirin 81 mg 1 p.o. every 12 hours x 30 days postop DVT prophylaxis 3. Encourage incentive spirometry 4. Continue ice, KELSEA hose, SCDs 5. Weight-bear as tolerated with use of walker 6. We will replace dressing to both the knee and stab incisions of the tibia to prevent any snagging of the sutures on the KELSEA hose. 7. Awaiting approval by insurance company for disposition to ECF or rehab center.
[2023-08-28] MEDS: Ferrous Sulfate 325 MG Tablet PO ×2 (12:26→17:11)
--- NOTE | 2023-08-28 13:33 | PN.HOSP_ITS ---
Reason for Visit Reason for Visit: Diagnoses Nausea with vomiting, unspecified (08/22/23) Encounter for other preprocedural examination (08/22/23) Presence of left artificial knee joint (08/22/23) Objective Data Objective Data Vital Signs: Vital Signs Temp Pulse Resp BP Pulse Ox O2 Del Method O2 Flow Rate 97.9 F 66 16 135/55 H 97 Room Air 2 08/28/23 07:55 08/28/23 07:55 08/28/23 07:55 08/28/23 07:55 08/28/23 07:55 08/28/23 07:58 08/28/23 03:46 Oxygen Flow Rate (L/min) 2 Oxygen Delivery Method Room Air Weight: 190 lb 14.725 oz Body Mass Index (BMI) 34.9 Intake & Output: Intake and Output for Last 24 Hours 08/26/23 08/27/23 08/28/23 23:59 23:59 23:59 Intake Total 200 / 200 200 / 200 Balance 200 / 200 200 / 200 Lab / Micro Data 08/24/23 06:10 08/24/23 06:10 Micro: Microbiology 07/31/23 08:38 Swab (Method) Nasal Screen MRSA/MSSA - Final Physical Exam Narrative Seen and examined. No significant change since yesterday. Patient moving bowel. Mild dyspeptic symptoms. No fever Complain of severe pain during and after physical therapy. Patient want about 15 feet with guarded assistance. Voiding urine spontaneously. Physical exam General: Awake, alert, oriented x3, Cooperative HEENT: Atraumatic, PERRLA, EOMI, Normocephalic Oral: Oral mucosa moist. No Gingival or Mucosal Lesions/ Ulcerations Neck: Supple, No JVD, Negative Carotid Bruits Chest wall/Lungs: Air entry diminished in bilateral lung bases. No crepitation/rhonchi Cardiovascular: Regular rate, Regular Rhythm, Normal S1, Normal S2, No M/G/R Abdomen: Bowel Sounds Present, Soft, Non Tender, Non-Distended. No palpable mass. : No dysuria. No renal angle tenderness. No suprapubic tenderness. Extremities: No edema, Capillary Refill Less than 3 Seconds Skin: Mild small bruise over left thigh above knee after TKA Musculoskeletal: Left knee TKR with ice pack. Surgical dressing is dry. No Tenderness to Palpation of other joints or Extremities Neurological: Cranial nerves II-XII grossly intact, DTR 2+/4. No acute focal neurological deficit. Psych/Mental Status: Flat affect. Assessment & Plan Assessment/Plan (1) Nausea & vomiting: PLAN: Plan This is a 73-year-old female being admitted for elective left knee replacement for left knee primary knee osteoarthritis Nausea and vomiting * Postoperative. Suspect will continue to get better. * Continue with as needed Zofran 08/23: Patient is doing good. No acute issues 08/24: On supportive treatment with antiemetics. Status post left knee replacement * Management per orthopedics * VTE prophylaxis per orthopedics with aspirin twice daily 08/23: Patient has significant pain requiring morphine after physical therapy. Plan for discharge to rehab. 08/24: Patient had only 15 feet and guarded desisted and therefore will need rehab 08/26: Discussed with the returned case inspector. Pre-CERT pending. Constipation: 08/25: Patient not in bowel movement despite being on senna S. Started on MiraLAX 17 g twice daily and Metamucil. Hold for liquid BM or diarrhea or more than 2 BM per day 08/26: Patient moving her bowel. Continue the regimen. 08/27: No significant change. Pre-CERT is pending. Patient moving bowel. Advised walking and incentive spirometry Chronic conditions * Hypertension: Continue losartan * Hypothyroidism: Continue levothyroxine * Diabetes: Continue with metformin For acute medical issues. Blood pressure and heart rate is controlled. No hypoxia or tachypnea. Patient is here and might need acute rehab as per Ortho. Charges/Coding Visit Charges Inpatient E&M: 04669 Subs Hosp L2
[2023-08-28 13:52] VITALS: BP 128/59; PULSE 69; RESP 16; TEMP 36.9; O2SAT 98
[2023-08-28] MEDS: proMETHazine 25 MG/ML Syringe 12.5 MG IM (15:09)
--- NOTE | 2023-08-28 16:09 | CASEMGMT ---
Addendum entered by Maryellen Galvan 08/28/23 17:08: Social Work SW called pt's insurance directly, eventually was able to get the following number for a peer to peer: [phone]. SW called to set up the peer to peer, informed there is no precert set up for this pt for SNF. SW called Marlys at [facility] and left a message for her as well. SW also called back again to ask if anybody is available in admissions, message left to call SW. DUNIA updated Dr. Issa of difficulty attaining correct number and will need to follow up tomorrow. SW spoke w/pt again, explained the physician can call tomorrow to see if insurance may overturn the denial, but it may not work. Pt states she will just go home, would like to go home tomorrow afternoon. She spoke w/family, her daughter will come on Sunday, her son will check in on her. She does want home health and may need some DME. SW will let CM know to see pt tomorrow to get her set up with what she needs. SW updated physician. Plan: Home, CM to follow for DME and [facility] Original Note: Social Work Pt was declined SNF by her insurance, [facility] did give a number for SW to pass on to physician to do a peer to peer. SW spoke w/pt in room, explained that insurance declined SNF for her. SW inquired if she would be comfortable going home. Pt states her family cannot help her as they work during the day. She would be open to home health care but is also concerned about completing her ADLs. We spoke about physician doing a peer to peer to see if insurance would reconsider. Pt concerned about homegoing, so it is in pt's best interest to see if insurance would reconsider. SW explained will reach out to physician. SW did also speak w/pt about hiring aides to assist, she states cannot afford it. If she does have to go home is open to home health. SW explained will call physician. DUNIA called DANNIELLE Mix, he states to call Dr. Issa. SW called Dr. Issa, he is willing to do a peer to peer, would like it set up by his office. DUNIA explained will see if SW can set it up and let him know the time. DUNIA called the number provided by [facility], it is incorrect. SW called [facility] and also sent a message in [facility] requesting the corrected number. DUNIA will follow up once SW is given the correct number.
[2023-08-28 19:23] VITALS: PULSE 69; RESP 20
[2023-08-28 20:12] VITALS: BP 135/90; PULSE 81; RESP 16; TEMP 36.5; O2SAT 98
[2023-08-28] MEDS: Atorvastatin Calcium 20 MG Tablet PO ×2 (20:14)
[2023-08-29 03:45] VITALS: BP 151/61; PULSE 67; RESP 16; TEMP 36.7; O2SAT 97
[2023-08-29] MEDS: Acetaminophen 500 MG Tablet 1000 MG PO ×2 (05:31→13:41)
[2023-08-29] MEDS: oxyCODONE 5 MG Tablet PO ×2 (05:31→09:47)
[2023-08-29] MEDS: Levothyroxine 150 MCG Tablet PO (05:31)
[2023-08-29] MEDS: Albuterol 2.5 MG/3 ML VIAL.NEB. INHALATION ×2 (07:16→12:42)
[2023-08-29] MEDS: Budesonide Respules 0.5 MG/2 ML AMPUL.NEB. INHALATION (07:16)
[2023-08-29 07:40] VITALS: PULSE 76; RESP 18
[2023-08-29 08:14] VITALS: BP 137/66; PULSE 67; RESP 18; TEMP 36.5; O2SAT 97
[2023-08-29 08:20] VITALS: O2SAT 95
[2023-08-29] MEDS: Cholecalciferol (VIT D3) 25 MCG TABLET (1,000 UNITS) PO (08:33)
[2023-08-29] MEDS: Psyllium 1 PACKET PO (08:33)
[2023-08-29] MEDS: Aspirin 81 MG TAB.CHEW PO (08:33)
[2023-08-29] MEDS: Polyethylene Glycol 3350 17 GM PACKET PO (08:33)
[2023-08-29] MEDS: Folic Acid 1 MG Tablet PO (08:33)
[2023-08-29] MEDS: Doxycycline 100 MG CAPSULE PO (08:33)
[2023-08-29] MEDS: LORazepam 1 MG Tablet PO (08:34)
[2023-08-29] MEDS: Pantoprazole Sodium 40 MG Tablet PO (08:34)
[2023-08-29] MEDS: metFORMIN HCl 500 MG Tablet PO (08:34)
[2023-08-29] MEDS: Famotidine 20 MG Tablet PO (08:34)
[2023-08-29] MEDS: Montelukast 10 MG Tablet PO (08:34)
[2023-08-29] MEDS: Senna/Docusate Sodium 1 Tablet 2 TABLET PO (08:34)
[2023-08-29] MEDS: Losartan Potassium 100 MG Tablet PO (08:35)
[2023-08-29] MEDS: Naproxen 500 MG Tablet PO (08:35)
--- NOTE | 2023-08-29 09:33 | DS.PCM_ITS ---
Providers Date of Admission: 08/22/23 Date of Discharge: 08/29/23 Primary Care Physician: Dr. Kevin Adam MD Consultations 08/22/23 07:08 Consult: Hospitalist Routine Consulting Provider: Hector Kilgore Reason for Consult: post op med management EMERGENT Consult: No MD Notified: Yes Date Notified: 08/22/23 Time Notified: 13:21 Method of Notification: Text Reason For Visit: Total Knee Replacement Robotic Arm Diagnosis Discharge Diagnosis (1) Nausea & vomiting: Status: Acute Code(s): R11.2 - Nausea with vomiting, unspecified (2) Status post total left knee replacement: Status: Acute Code(s): Z96.652 - Presence of left artificial knee joint Medications at Discharge Home Medications albuterol sulfate 90 mcg/actuation aerosol inhaler (Ventolin HFA) 2 puff inhalation Q6H PRN shortness of breath or wheezing 02/22/23 atorvastatin 20 mg tablet 20 mg PO DAILY HLD 02/22/23 fluticasone 500 mcg-salmeterol 50 mcg/dose blistr powdr for inhalation (Advair Diskus) 1 inh inhalation BID BREATHING 02/22/23 ipratropium 0.5 mg-albuterol 3 mg (2.5 mg base)/3 mL nebulization soln 3 ml inhalation TID PRN shortness of breath or wheezing 02/22/23 levothyroxine 150 mcg capsule 150 mcg PO DAILY THYROID 02/22/23 lorazepam 1 mg tablet (Ativan) 1 mg PO DAILY PRN anxiety 02/22/23 losartan 100 mg tablet (Cozaar) 100 mg PO DAILY HTN 02/22/23 montelukast 10 mg tablet (Singulair) 10 mg PO DAILY ASTHMA 02/22/23 cholecalciferol (vitamin D3) 25 mcg (1,000 unit) capsule (Vitamin D3) 25 mcg PO DAILY SUPPLEMENT 07/27/23 metformin 500 mg tablet 500 mg PO DAILY DIABETES 07/27/23 acetaminophen 500 mg tablet 1,000 mg (2 x 500 mg) PO Q8 #0 tabs 08/24/23 aspirin 81 mg chewable tablet 81 mg PO BIDCM #0 tabs 08/24/23 doxycycline monohydrate 100 mg capsule 100 mg PO BID 12 days #0 caps 08/24/23 famotidine 20 mg tablet 20 mg PO DAILY 30 days #0 tabs 08/24/23 ferrous sulfate 325 mg (65 mg iron) tablet (FeroSul) 325 mg PO 1200,1700 21 days #42 tabs 08/24/23 folic acid 1 mg tablet 1 mg PO BREAKFAST 21 days #0 tabs 08/24/23 naproxen 500 mg tablet 500 mg PO BIDCM 30 days #60 tabs 08/24/23 nut.tx.comp. immune systm,reg 0.08 gram-1.4 kcal/mL oral liquid (Ensure Surgery) 237 ml PO DAILY #0 mL 08/24/23 ondansetron HCl 4 mg tablet 4 mg PO Q8H PRN nausea and vomiting #20 tabs 08/24/23 oxycodone 5 mg tablet 5 - 10 mg (1 - 2 x 5 mg) PO Q4H PRN PRN Pain Score 4-10 7 days #42 tabs 08/24/23 sennosides 8.6 mg-docusate sodium 50 mg tablet (Stool Softener-Stimulant Laxative) 2 tab PO BID #0 tabs 08/24/23 pantoprazole 40 mg tablet,delayed release 40 mg PO DAILY #30 tabs 08/29/23 psyllium husk (aspartame) 3 gram oral powder packet (Daily Fiber (psyllium-aspar tame)) 1 packet PO DAILY #54 ea 08/29/23 Hospital Course Summary of Care Provided Hospital Course: Patient is a 73-year-old female status post elective left total knee arthroplasty with robotic assistance with Dr. Issa on 08/22/2023. She is now 7 days postoperatively and doing well clinically and orthopedically. During postoperative course she did have postoperative x-rays which were concerning for a foreign body or bony fragment in the lateral gutter. After discussion with patient and family it was decided to explore this. On 08/22/2023 she did undergo a left knee expiration for foreign body or bony fragment with polyethylene exchange. No foreign body was identified. They did bring in live fluoroscopy which did not confirm any foreign bodies. Patient did have some mild postoperative anemia for which she was started on iron and ferrous sulfate supplements for. She will follow-up with her primary care in approximate 3 to 4 weeks for reevaluation. She will be placed on doxycycline for 2 weeks postoperatively due to A1c being greater than 7.0 and staff positive on screening. Case management is on board with patient and her insurance she has been denied [facility] facility. She is now intending to go home with home health. Patient is cleared from an orthopedic standpoint as well as medical standpoint for discharge home. Anticipate discharge 08/29/2023. Physical Exam Narrative Patient resting comfortably in bedside chair No signs of acute distress Satting well on room air Limb is warm to touch, Sensation intact throughout entire lower extremity, including saphenous, sural, superficial and deep peroneal, and tibial distribution. DP/PT pulses bounding. Dorsiflexion plantarflexion strength 5/5 Dressing clear dry intact. These were changed yesterday. No current saturation or drainage. Calf nontender to palpation, no erythema, no edema. Negative Homans Weight / BMI Weight Weight: 86.6 kg Body Mass Index (BMI) 34.9 ABG / Lab / Microbiology Data 08/24/23 06:10 08/24/23 06:10 Microbiology: Microbiology 07/31/23 08:38 Swab (Method) Nasal Screen MRSA/MSSA - Final D/C Instructions Discharge Diet: No restrictions Discharge Activity: Return to Normal Activity and May Shower Weight Bearing Status: Weight bearing as tolerated Keep extremity elevated above heart level: Operative Extremity Call your doctor if your incision/area has: Continuous Slow Oozing, Sudden Increased Bleeding, Increased Pain/ Swelling, Increased Redness, Foul Smelling Discharge and Swelling at the incision site Call your doctor if you observe: Fever of 101 or Higher, Inability to have a bowel movement, Shortness of breath, Dizziness, Swelling in the ankles, Chest pain, Increased palpitations (irregular heartbeat), Calf discomfort and Uncontrolled pain Remove Dressing in: 5 days Cleanse incision/area with: Soap & Water and Keep Dressing Clean & Dry Additional Instructions: Follow-up with primary care as instructed in about 3 to 4 weeks Follow-up in office with post orthopedics postoperative 2 weeks as previously scheduled. When: As previously scheduled. Orthopedics which is 2 weeks postoperatively. Meaningful Use Info Meaningful Use Meaningful Use Diagnoses (Choose all that apply): None applicable Ischemic Stroke Statin Dosing Therapy Reference: STATIN DOSE THERAPY REFERENCE: * Patients > 75 years receive moderate or high dose statin therapy. * Patients 75 years or YOUNGER should receive HIGH intensity statin dose unless contraindicated. You will be required to document reason for non-treatment if statin daily dose does not meet guidelines. HIGH DOSE STATIN THERAPY DAILY Atorvastatin > than or = to 40 mg Rosuvastatin > than or = to 20 mg Amlodipine + Atorvastatin > than or = to 2.5/40 mg Ezetimibe + Simvastatin 10/80 mg Simvastatin 80mg Discharge Plan Admission Admit Date/Time: 08/22/23 11:58 Attending Provider: Luis F Rouse Primary Care Provider: Kevin Adam Consulting Providers: Jb Issa; Jalen Mantilla; Luis F Rouse Discharge Orders/Prescriptions Prescriptions: New acetaminophen 500 mg Tablet 1,000 mg PO Q8 Qty: 0 0RF Rx Instructions: Do not take more than 3000 mg Tylenol in a 24-hour period. doxycycline monohydrate 100 mg Capsule 100 mg PO BID 12 Days Qty: 0 0RF Rx Instructions: Take for 2 weeks postoperatively, stop date September 05, 2023 aspirin 81 mg Tablet,Chewable 81 mg PO BIDCM Qty: 0 0RF Rx Instructions: Take 81 mg aspirin twice daily for 4 weeks postoperatively for DVT prophylax is. famotidine 20 mg Tablet 20 mg PO DAILY 30 Days Qty: 0 0RF Rx Instructions: Take for 4 weeks postoperatively while using the aspirin and nonsteroidal anti-inflammatory ferrous sulfate [FeroSul] 325 mg (65 mg iron) Tablet 325 mg PO 1200,1700 21 Days Qty: 42 0RF folic acid 1 mg Tablet 1 mg PO BREAKFAST 21 Days Qty: 0 0RF naproxen 500 mg Tablet 500 mg PO BIDCM 30 Days Qty: 60 0RF oxycodone 5 mg Tablet 5 - 10 mg PO Q4H PRN PRN (Reason: Pain Score 4-10) 7 Days Qty: 42 0RF Ensure Surgery 0.08-1.4 gram-kcal/mL Liquid 237 ml PO DAILY Qty: 0 0RF Rx Instructions: Take for 2 weeks postoperatively sennosides-docusate sodium [Stool Softener-Stimulant Laxat] 8.6-50 mg Tablet 2 tab PO BID Qty: 0 0RF Rx Instructions: Take until first bowel movement, then as needed for constipation ondansetron HCl 4 mg tablet 4 mg PO Q8H PRN (Reason: nausea and vomiting) Qty: 20 0RF pantoprazole 40 mg Tablet,Delayed Release (Dr/Ec) 40 mg PO DAILY Qty: 30 0RF Daily Fiber (psyllium-aspart) 3 gram Powder In Packet 1 packet PO DAILY Qty: 54 0RF Continued levothyroxine 150 mcg capsule 150 mcg PO DAILY albuterol sulfate [Ventolin HFA] 90 mcg/actuation HFA aerosol inhaler 2 puff inhalation Q6H PRN (Reason: shortness of breath or wheezing) ipratropium-albuterol 0.5 mg-3 mg(2.5 mg base)/3 mL solution for nebulization 3 ml inhalation TID PRN (Reason: shortness of breath or wheezing) losartan [Cozaar] 100 mg tablet 100 mg PO DAILY lorazepam [Ativan] 1 mg tablet 1 mg PO DAILY PRN (Reason: anxiety) montelukast [Singulair] 10 mg tablet 10 mg PO DAILY atorvastatin 20 mg tablet 20 mg PO DAILY fluticasone propion-salmeterol [Advair Diskus] 500-50 mcg/dose blister with device 1 inh inhalation BID cholecalciferol (vitamin D3) [Vitamin D3] 25 mcg (1,000 unit) capsule 25 mcg PO DAILY metformin 500 mg tablet 500 mg PO DAILY Discontinued oxycodone-acetaminophen 5-325 mg tablet 1 tab PO Q6H PRN (Reason: pain) Patient Comments: TAKE 1 TABLET BY MOUTH EVERY 6 HOURS NEEDED FOR PAIN Other Ambulatory Orders: 12 Lead EKG (Routine) Timeframe: [id number] Location: None Selected Ordered By: Dr. Jb Issa Referrals / Follow Up: Kevin Adam MD [Primary Care Provider] - 09/11/23 11:00 am Dominguez Cortez PA-C [Med Staff - Adv Practice Prof] - 09/06/23 2:15 pm Disposition Disposition (needs filled in before D/C Order can be placed): Home Health Service
--- NOTE | 2023-08-29 09:40 | CASEMGMT ---
Addendum entered by Gio uHrley 08/29/23 12:01: Pt states she has rx for Albut/Atrovent duoneb @ [facility] in [place] awaiting to be picked up and would like to get from [facility] retail pharmacy. Call placed to the retail pharmacy and they will contact [facility] to have rx transferred. They will get pt's rx's ready and deliver to pt's room per her request. Pt denies other discharge needs or concerns. Original Note: JAZMINE VÁSQUEZ NOTE: Pt being discharged home. JAZMINE CM to room. Pt sitting up in chair in room. Introduced self and role. Pt states she feels safe to discharge home, stating her son will take her home today and he and her daughter will be checking on her. She states she has contacted her insurance and they offer delivery of 2 meals/day, and her family will assist w/meals until this begins. She states she already has a WW that she got from Dr Issa's office (this is in pt's room w/her now and she will take home w/her), her grandson is getting her a 3-in-1 commode, and she already has a shower chair. She has a life alert button @ her home but it is not hooked up/connected yet, but they plan to do this when she gets home today. Pt would like [facility] for therapy. Offered list of [facility] agencies. She states she does not need a list and would like [facility]. Call placed to [facility] and spoke w/Kathy. Per Kathy, pt is out of their service area and they are not able to accept her. A list of [facility] providers including quality and resource use data and consistent with the patient?s preferred geographic region, medical needs, and insurance network were provided from the [employer] Guide. Pt states she does not have a preference and states to go with whomever is able to take her. Glenis, discharge paperhanger assistant, made aware and will do a referral w/[facility] as they do cover pt's geographic area and pt agreeable to them. Lynne VILLEGAS RN, CM
--- NOTE | 2023-08-29 10:24 | CASEMGMT ---
Addendum entered by Glenis Mcgowan 08/29/23 11:53: [facility] has accepted patient. They are to reach out to patient today to schedule soc. RN CM updated. Glenis Mcgowan, Discharge Planning Asst. Original Note: Discharge Planning [facility] updated that patient will return home. HH referral faxed to [facility] . Glenis Mcgowan, Discharge Planning Asst.
[2023-08-29] MEDS: Ferrous Sulfate 325 MG Tablet PO (11:53)
[2023-08-29 13:03] VITALS: PULSE 72; RESP 20
--- NOTE | 2023-08-29 13:12 | PN.HOSP_ITS ---
Reason for Visit Reason for Visit: Diagnoses Nausea with vomiting, unspecified (08/22/23) Encounter for other preprocedural examination (08/22/23) Presence of left artificial knee joint (08/22/23) Objective Data Objective Data Vital Signs: Vital Signs Temp Pulse Resp BP Pulse Ox O2 Del Method O2 Flow Rate 97.7 F L 72 20 H 137/66 H 95 Room Air 2 08/29/23 08:14 08/29/23 13:03 08/29/23 13:03 08/29/23 08:14 08/29/23 08:20 08/29/23 08:20 08/28/23 03:46 Oxygen Flow Rate (L/min) 2 Oxygen Delivery Method Room Air Weight: 190 lb 14.725 oz Body Mass Index (BMI) 34.9 Intake & Output: Intake and Output for Last 24 Hours 08/27/23 08/28/23 08/29/23 23:59 23:59 23:59 Intake Total 200 / 200 400 / 400 100 / 100 Balance 200 / 200 400 / 400 100 / 100 Lab / Micro Data 08/24/23 06:10 08/24/23 06:10 Micro: Microbiology 07/31/23 08:38 Swab (Method) Nasal Screen MRSA/MSSA - Final Physical Exam Narrative Seen and examined. No acute issues. Patient moving bowel. Mild dyspeptic symptoms. No fever probably getting discharged today Physical exam General: Awake, alert, oriented x3, Cooperative HEENT: Atraumatic, PERRLA, EOMI, Normocephalic Oral: Oral mucosa moist. No Gingival or Mucosal Lesions/ Ulcerations Neck: Supple, No JVD, Negative Carotid Bruits Chest wall/Lungs: Air entry diminished in bilateral lung bases. No crepitation/rhonchi Cardiovascular: Regular rate, Regular Rhythm, Normal S1, Normal S2, No M/G/R Abdomen: Bowel Sounds Present, Soft, Non Tender, Non-Distended. No palpable mass. : No dysuria. No renal angle tenderness. No suprapubic tenderness. Extremities: No edema, Capillary Refill Less than 3 Seconds Skin: Mild small bruise over left thigh above knee after TKA Musculoskeletal: Left knee TKR with ice pack. Surgical dressing is dry. No Tenderness to Palpation of other joints or Extremities Neurological: Cranial nerves II-XII grossly intact, DTR 2+/4. No acute focal neurological deficit. Psych/Mental Status: Flat affect. Assessment & Plan Assessment/Plan (1) Nausea & vomiting: PLAN: Plan This is a 73-year-old female being admitted for elective left knee replacement for left knee primary knee osteoarthritis Nausea and vomiting * Postoperative. Suspect will continue to get better. * Continue with as needed Zofran 08/23: Patient is doing good. No acute issues 08/24: On supportive treatment with antiemetics. Status post left knee replacement * Management per orthopedics * VTE prophylaxis per orthopedics with aspirin twice daily 08/23: Patient has significant pain requiring morphine after physical therapy. Plan for discharge to rehab. 08/24: Patient had only 15 feet and guarded desisted and therefore will need rehab 08/26: Discussed with the complex case manager. Pre-CERT pending. Constipation: 08/25: Patient not in bowel movement despite being on senna S. Started on MiraLAX 17 g twice daily and Metamucil. Hold for liquid BM or diarrhea or more than 2 BM per day 08/26: Patient moving her bowel. Continue the regimen. 08/27: No significant change. Pre-CERT is pending. Patient moving bowel. Advised walking and incentive spirometry 08/28: Patient getting discharged by attending orthopedic service. Patient moving bowel. No acute issues advised to continue c incentive spirometry and PEP for 1 week Chronic conditions * Hypertension: Continue losartan * Hypothyroidism: Continue levothyroxine * Diabetes: Continue with metformin Patient is moderately stable. Being discharged to SNF by orthopedic service. Charges/Coding Visit Charges Inpatient E&M: 81248 Subs Hosp L2
[2023-08-29 13:40] VITALS: BP 128/73; PULSE 74; RESP 18; TEMP 36.4; O2SAT 96
== END 2023-08-29 15:13 | disposition home health service (06) ==
LOC: SDC 11:59 → MS3 11:59
PROVIDERS: Anesthesiology; Physician Assistant Surgical; Admitting Provider Specialist; PCP Family Medicine; Referring Provider Specialist; Visit Provider Internal Medicine
PROC: 0SRD0JZ Replacement of Left Knee Joint with Synthetic Substitute, Open Approach (ICD-10-PCS; CPT 27447; principal; 2023-08-22 09:30)
PROC: (CPT 27447; principal; 2023-08-22 14:35)
DX: M17.12 Unilateral primary osteoarthritis, left knee (principal); E11.9 Type 2 diabetes mellitus without complications; D64.9 Anemia, unspecified; Z68.34 Body mass index [BMI] 34.0-34.9, adult; J45.909 Unspecified asthma, uncomplicated; K44.9 Diaphragmatic hernia without obstruction or gangrene; E66.9 Obesity, unspecified; G47.30 Sleep apnea, unspecified; I10 Essential (primary) hypertension; M21.162 Varus deformity, not elsewhere classified, left knee; Z79.899 Other long term (current) drug therapy; E03.9 Hypothyroidism, unspecified; Z79.890 Hormone replacement therapy; R11.2 Nausea with vomiting, unspecified
CPT/HCPCS: 27447; S2900; 27331; 01402; 64447; 01400; 36415; 73560; 76000; 80048; 82040; 82962; 83036; 83735; 85025; 85027; 87077; 87081; 88305; 88311; 93005; 94640; 94668; 94762; 96361; 96365; 96366; 96372; 96375; 96376; 97110; 97116; 97162; 97166; 97530; 97535; 99221; 99252; C1776; J7050; J7120; A4216; G0378; G0463; J2405

== ENCOUNTER → 2023-10-26 | Outpatient (CLI) | payer MEDICARE, SELFPAY ==
--- NOTE | 2023-10-26 14:46 | VDLE_ITS ---
Reason For Study: LLE Swelling Procedure LEFT This is a venous duplex using B-mode, color GSV is normal. flow and spectral Doppler. CFV is spontaneous, phasic, competent, and Exam performed in department. demonstrates normal augmentation. The exam was diagnostic. Unable to acquire compression at CFV due to A preliminary report was called and/or faxed patient intolerance. Flow documented in color to Roby Gusman / Ray Jaycobaur. and pulsed wave doppler. FV is compressible, spontaneous, phasic, competent and demonstrates normal augmentation. Unable to acquire compression at Mid and Dist FV due to patient intolerance. Flow documented in color and pulsed wave doppler. POP V is compressible, spontaneous, phasic, competent and demonstrates normal augmentation. T/P Trunk is compressible. PTV is compressible. LT PerV is compressible. VL/Venous Duplex US, Unilateral Interpretation Summary Deep veins of the left lower extremity are patent segmentally. There is no evid ence of left lower extremity deep vein thrombosis. The left great saphenous vein appears patent an d compressible segmentally. Ordering Physician: Dominguez Cortez Referring Physician: Kevin Adam Performed By: Terrence Santos RVT
== END | disposition home or self-care (01) ==
LOC: CVS 14:44
PROVIDERS: PCP Family Medicine; Referring Provider Physician Assistant Surgical; Visit Provider Physician Assistant Surgical
DX: R22.42 Localized swelling, mass and lump, left lower limb (principal)
CPT/HCPCS: 93971

== ENCOUNTER 2025-01-07 09:13 | Day surgery (SDC) | payer MEDICARE, SELFPAY ==
--- NOTE | 2024-12-25 08:07 | EKG12_ITS ---
Test Reason : PREOP Blood Pressure : */* mmHG Vent. Rate : 69 BPM Atrial Rate : 69 BPM P-R Int : 158 ms QRS Dur : 80 ms QT Int : 382 ms P-R-T Axes : 30 8 57 degrees QTcB Int : 409 ms Normal sinus rhythm Possible Anterior infarct , age undetermined Abnormal ECG Confirmed by KASHMIR WOODS ([id number]), senior technical editor CÉSAR ALCALA ([id number]) on 12/26/2024 5:45:15 AM Referred By: Andrade Traore Confirmed By: KASHMIR WOODS
[2024-12-25 09:05] LABS: Partial Thromboplast Time 30.6 Seconds (24.1-36.2); Prothrombin Time (Protime)PT. 14.5 SECONDS (11.7-14.9)
--- NOTE | 2024-12-25 19:31 | PAT.ANE_ITS ---
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 When Was Last Pacemaker Check QUESTION #4 FULL TEXT: You/Your Family Experience fever (hyperthermia) with Anesthesia Last Oral Intake Last Oral intake: Last Oral Intake NPO since Meds taken in AM with sips of water? 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 Female Yes 12/24/24 13:18 HX of Motion Sickness No 12/24/24 13:18 HX of N/V After Surgery No 12/24/24 13:18 Non-Smoker Yes 12/24/24 13:18 Duration of Surgery greater Yes 12/24/24 13:18 than 60 minutes Number of Risk Factors 3 12/24/24 13:18 PONV Score Moderate Risk 12/24/24 13:18 Height & Weight Height & Weight: Anesthesia: Height & Weight Height 5 ft 2 in 12/19/24 09:37 Respiratory Assessment Respiratory Assessment - conductor orchestra: Respiratory Tract Infection Hx - conductor orchestra Hx Respiratory Tract Infection No 12/24/24 13:18 STOP Sleep Apnea STOP Sleep Apnea - conductor orchestra: STOP Sleep Apnea - conductor orchestra Hx Hypertension Yes: CONTROLLED WITH MED 12/24/24 13:18 Hx Sleep Apnea Yes 12/24/24 13:18 CPAP Yes: NONCOMPLIANT 12/24/24 13:18 BIPAP No 12/24/24 13:18 Do you snore loudly (louder than talking or can be heard Do you often feel tired/ fatigued/ sleepy during daytime? Has anyone observed you stop breathing during sleep? STOP Results Positive 12/24/24 13:18 QUESTION #5 FULL TEXT : Do you snore loudly (louder than talking or can be heard through closed doors)? 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 Specify any problems Hx of Preganancy in last 3 No 12/24/24 13:18 Months Nurse Filling Out Transfusion DSCHRIBER 12/24/24 13:18 & Questions: Date: 12/24/24 12/24/24 13:18 Time: 13:20 12/24/24 13:18 Patient unable to answer at this time (ie. confused, unrespo /Reproduction History /Reproductive History - conductor orchestra: /Reproductive Hx- conductor orchestra Hx Now No 12/24/24 13:18 Gestational Age (in weeks): EDC: Hx Hx Para Hx Section SAB No 12/24/24 13:18 PFSH Medical History (Updated 12/24/24 @ 13:35 by Amaya Billy) Cancer Fatty liver Easy bruising Migraine headache Injury of head and neck Low iron Lightheadedness Difficulty swallowing CPAP (continuous positive airway pressure) dependence History of echocardiogram History of palpitations History of MRSA infection Restless legs History of ulceration PONV (postoperative nausea and vomiting) Heartburn Leg cramps History of edema History of stress test Wears dentures Wears glasses Post-menopausal Anxiety Diabetes Thyroid disease Arthritis Anemia Gastric reflux Non-smoker Shortness of breath on exertion Asthma Chronic cough Hypertension History of irregular heartbeat History of rheumatic fever FH: total knee replacement H/O hiatal hernia Home Medications ?Medication ?Instructions ?Recorded ?Last Taken ?Type albuterol sulfate 90 mcg/actuation 2 puff inhalation Q 6H PRN 02/22/23 Unknown History aerosol inhaler (Ventolin HFA) shortness of breath or wheezing atorvastatin 20 mg tablet 20 mg PO QHS HLD 02/22/23 Un known History fluticasone 500 mcg-salmeterol 50 1 inh inhalation BID BREATHING 02/22/23 Unknown History mcg/dose blistr powdr for inhalation (Advair Diskus) ipratropium 0.5 mg-albuterol 3 mg 3 ml inhalation TID shortness of 02/22/23 08/22/23 04:00 History (2.5 mg base)/3 mL nebulization breath or wheezing soln losartan 100 mg tablet (Cozaar) 100 mg PO DAILY HTN 08/21/23 History montelukast 10 mg tablet 10 mg PO DAILY ASTHMA Unknown History (Singulair) metformin 500 mg tablet 500 mg PO BID DIABETES 07/26 Unknown History ferrous sulfate 325 mg (65 mg 325 mg PO QODAY 12/24/24 Unknown History iron) tablet levothyroxine 175 mcg tablet 175 mcg PO DAILY 12/24/24 Unknown History oxycodone-acetaminophen 5 mg-325 1 tab PO Q6H PRN pain 12/24/24 Unknown History mg tablet Allergy/AdvReac Type Severity Reaction Status Date / Time Sulfa (Sulfonamide Allergy Severe Itching Verified 12/24/24 13:12 Antibiotics) meloxicam Allergy Rash Verified 12/24/24 13:12 Family History (System 06/20/23 @ 14:54 by Verenice Molina) Sister Colon cancer Father Diabetes Heart disease Mother Kidney disease Surgical History (Updated 12/24/24 @ 13:35 by Amaya Billy) Hx of total hysterectomy Hx of total knee arthroplasty History of esophagogastroduodenoscopy (EGD) History of total right knee replacement (TKR) History of colonoscopy History of repair of hiatal hernia History of cholecystectomy History of appendectomy Social History Smoking Status: Never smoker alcohol intake: never substance use type: does not use Audit: Pertinent Findings Pertinent Findings EKG Perinent findings: 07/31/2023. Normal sinus rhythm. Additional pertinent findings: 12/22/2024. Hemoglobin 8.8. December 10, 2024. Primary rhythm is sinus rhythm. SVE burden was 0.05%. PVC burden was 0.42% Recommendation Anesthesia Recommendation Anesthesia recommendation: OPTIMIZED for anesthesia (If patient is symptomatic (chest pain, shortness of breath, depressed SpO2) on day of surgery may need further workup including possible transfusion. Otherwise patient is okay for surgery.)
[2025-01-07] VITALS (11 sets, daily range): BP systolic 124–159; BP diastolic 54–65; PULSE 58–66; RESP 14–18; TEMP 36.2–36.8; O2SAT 93–99; BMI 31.8
[2025-01-07] MEDS: Lactated Ringers 1,000 ML 15 ML IV (09:43)
--- NOTE | 2025-01-07 10:33 | PCM.HP.BLA ---
History and Physical Date of Admission: 01/07/25 Intake Vital Signs 08/26/2412:09 12/19/2508:37 Height 5 ft 2 in 5 ft 2 in Weight: 176 lb BMI 32.1 BP 132/74 H Blood Pressure Location Rt brachial Position Sitting Respiration 17 Pulse 83 Pulse Source Monitor Pulse Oximetry (%) 96 Oxygen Delivery Method room air Intake Visit Reasons: Hernia Chief Complaint: hernias Is patient in pain?: No Allergies Sulfa (Sulfonamide Antibiotics) Allergy (Severe, Verified 12/19/24 09:39) Itchingmeloxicam Allergy (Verified 12/19/24 09:39) Rash Medications ?Medication ?Instructions ?Recorded ?Confirmed ?Type albuterol sulfate 90 mcg/actuation 2 puff inhalation Q6H PRN 02/22/23 12/19/24 History aerosol inhaler (Ventolin HFA) shortness of breath or wheezing atorvastatin 20 mg tablet 20 mg PO DAILY HLD 02/22/23 12/19/24 History fluticasone 500 mcg-salmeterol 50 1 inh inhalation BID BREATHING 02/22/23 12/19/24 History mcg/dose blistr powdr for inhalation (Advair Diskus) ipratropium 0.5 mg-albuterol 3 mg 3 ml inhalation TID PRN shortness 02/22/23 12/19/24 History (2.5 mg base)/3 mL nebulization of breath or wheezing soln levothyroxine 150 mcg capsule 150 mcg PO DAILY THYROID 02/22/23 12/19/24 History losartan 100 mg tablet (Cozaar) 100 mg PO DAILY HTN 02/22/23 12/19/24 History montelukast 10 mg tablet 10 mg PO DAILY ASTHMA 02/22/23 12/19/24 History (Singulair) metformin 500 mg tablet 500 mg PO DAILY DIABETES 07/27/23 12/19/24 History acetaminophen 500 mg tablet 1,000 mg (2 x 500 mg) PO Q8 #0 tabs 08/24/23 12/19/24 Rx acetaminophen 500 mg tablet 1,000 mg (2 x 500 mg) PO Q8 #180 08/29/23 12/19/24 Rx tabs famotidine 20 mg tablet 20 mg PO DAILY #20 tabs 08/29/23 12/19/24 Rx Have you fallen in the past year?: No PFSH Medical History (Updated 12/19/24 @ 09:37 by Colette Clemente) History of steroid therapy History of MRSA infection Restless legs History of ulceration PONV (postoperative nausea and vomiting) Heartburn Sleep apnea Leg cramps History of edema History of stress test Wears dentures Wears glasses Post-menopausal Anxiety Diabetes Thyroid disease Arthritis Anemia High cholesterol Gastric reflux Non-smoker Shortness of breath on exertion Asthma Chronic cough Hypertension History of irregular heartbeat History of rheumatic fever FH: total knee replacement H/O hiatal hernia Surgical History History of esophagogastroduodenoscopy (EGD) History of total right knee replacement (TKR) History of colonoscopy History of repair of hiatal hernia History of section History of cholecystectomy History of appendectomy Family History (System 06/20/23 @ 14:54 by Verenice Molina) Sister Colon cancerFather Diabetes Heart diseaseMother Kidney disease Social History Smoking Status: Never smoker alcohol intake: never substance use type: does not use HPI HPI HPI: Patient is a 74-year-old female with a ventral hernia. The patient has had several laparoscopic surgeries. The patient reports pain and discomfort at her hernia. Patient reports has been there for at least a year. ROS General General: Yes weight change and fatigue; No appetite, colon cancer, breast cancer or weakness HEENT HEENT: No difficulty swallowing, eye injury, eye surgery, swollen glands or hoarseness Endo Endocrine: Yes thyroid disease and diabetes mellitus; No thyroid cancer, Hair loss, heat intolerance or cold intolerance Skin Skin: No rash or changing moles Musc Musculoskeletal: Yes arthritis; No back problems, rheumatoid arthritis, gout or joint pain Cardio Cardiovascular: Yes high blood pressure; No murmur, pacemaker, heart disease, atrial fibrillation, heart attack, heart stent, palpitations, shortness of breath with exertion or chest pain Psych Psychiatric: Yes anxiety; No depression or hearing voices Resp Respiratory: Yes shortness of breath, Yes sleep apnea, No cough, Yes COPD, Yes asthma, No emphysema and No wheezing Gastro Gastrointestinal: Yes abdominal pain, Yes nausea or vomiting, No diarrhea, No constipation, No blood in stool, Yes acid reflux, Yes hemorrhoids, No ulcers, No gallbladder problem and No black,tarry stools Reyes Hematologic: No blood thinners, No blood disorders, No bleeding, Yes anemia and No blood clots Neuro Neurologic: No system reviewed and no additional complaints, except as documented, No as per HPI, No abnormal gait, No abnormal hearing, No abnormal movements, No abnormal speech, No behavioral changes, No burning sensations, No confusion, No convulsions, No disequilibrium, No dizziness, No localized weakness, No frequent falls, No headache(s), No lack of coordination, No loss of vision, No memory loss, No numbness, No other visual disturbances, No radicular pain, No restless legs, No sensory deficit, No syncope, No tingling, No tremor(s), No weakness and No other Exam Const General: cooperative Orientation: alert and oriented x3 HENMT Head: normal to inspection Neck Neck: normal visual inspection and full ROM Chest Chest palpation & inspection: normal inspection of the chest Resp Effort & Inspection: normal respiratory effort Auscultation: clear to auscultation bilaterally Cardio Rate: regular rate Rhythm: regular rhythm GI Inspection: non-distended Palpation: soft and nontender Skin General: no rashes or lesions noted Neuro General: patient alert and patient oriented x3 Extrem General: full ROM Psych Appearance: grossly normal Mental Status: mental status grossly normal Assessment and Plan Assessment and Plan (1) Hernia: Plan: The patient has a ventral hernia in the epigastric region. This was on CT scan from a year ago. It seems to be fat-containing and it is not reducible. I discussed ventral hernia repair without mesh. I discussed surgery in detail as well as the risks including but not limited to bleeding, infection, injury other organs. Patient understands the risks and is willing to proceed. Andrade Traore MD Pager: [facility] [address] [place] [address], [address] [place] [address] Office: I have examined the patient and the H&P has been reviewed. There are no clinical changes since date of exam.
--- NOTE | 2025-01-07 10:48 | PRE.ANES_ITS ---
ASA Classification* ASA Classification ASA Classification: 3 Assessment & Plan Anesthesia* Anesthesia Assessment Anesthesia Assessment: Discussed sedation and/or anesthesia options, risks, benefits, and alternatives with patient/parents/legal guardian/POA. Questions invited. The patient/parents/legal guardian/POA seems to understand and agrees to proceed with anesthesia plan. Reviewed the physical assessment, medical history, allergy history and patient home medications list prior to surgery/procedure/anesthetic and documented any changes. Performed airway and anesthesia risk assessments. Anesthesia Type Anesthesia Type: General Anesthesia Focused Assessment* Temperature: 98.2 F Pulse Rate: 66 Blood Pressure: 124/65 Respiratory Rate: 16 Pulse Ox: 98 Oxygen Delivery Method: Room Air Airway Assessment Mouth opens: >3 cm Mallampati Score: II Teeth Condition: Dentures and Missing Neck Range of motion (ROM): Limited ROM Labs Anesthesia Preop lab: CBC WBC 5.7 K/mm3 (4.4-11.0) 08/24/23 06:10 08/24/23 RBC 3.51 M/mm3 (4.2-5.4) L 08/24/23 06:10 08/24/23 Hgb 10.0 g/dL (12.0-15.0) L 08/24/23 06:10 4 Hct 32.3 % (37-47) L 08/24/23 06:10 08/24/23 Plt Count 161 K/mm3 (150-450) 08/24/23 06:10 08/24/23 CHEMISTRY Potassium 4.1 mmol/L (3.5-5.1) 08/24/23 06:10 08/24/23 Sodium 139 mmol/L (136-145) 08/24/23 06:10 08/24/23 Magnesium 1.9 mg/dL (1.6-2.6) 07/31/23 08:38 07/31/23 BUN 8 mg/dL (7-18) 08/24/23 06:10 08/24/23 Creatinine 0.84 mg/dL (0.55-1.02) 08/24/23 06:10 08/24/23 Glucose 139 mg/dL (74-106) H 08/24/23 06:10 08/24/23 POC Glucose 170 mg/dL (74-106) H 08/22/23 17:43 08/22/23 TSH 0.029 uIU/mL (0.300-4.200) L 12/25/24 08:27 COAG PT 14.5 SECONDS (11.7-14.9) 12/25/24 08:27 Pre-Assessment Diagnosis/Proposed Procedure Planned Operative Procedure(s): VENTRAL HERNIA REPAIR NO MESH Anesthesia History Anesthesia 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 When Was Last Pacemaker Check QUESTION #4 FULL TEXT: You/Your Family Experience fever (hyperthermia) with Anesthesia Last Oral Intake Last Oral intake: Last Oral Intake NPO since 07:00 01/07/25 09:44 Meds taken in AM with sips of Yes 01/07/25 09:44 water? Meds patient instructed to take am of surgery PONV PONV - financial compliance manager: PONV - financial compliance manager Female Yes 12/24/24 13:18 HX of Motion Sickness No 12/24/24 13:18 HX of N/V After Surgery No 12/24/24 13:18 Non-Smoker Yes 12/24/24 13:18 Duration of Surgery greater Yes 12/24/24 13:18 than 60 minutes Number of Risk Factors 3 12/24/24 13:18 PONV Score Moderate Risk 12/24/24 13:18 Height & Weight Height & Weight: Anesthesia: Height & Weight Height 5 ft 2 in 01/07/25 09:44 Weight: 79 kg 01/07/25 09:44 Body Mass Index (BMI) 31.8 01/07/25 09:44 Respiratory Assessment Respiratory Assessment - financial compliance manager: Respiratory Tract Infection Hx - financial compliance manager Hx Respiratory Tract Infection No 12/24/24 13:18 STOP Sleep Apnea STOP Sleep Apnea - financial compliance manager: STOP Sleep Apnea - financial compliance manager Hx Hypertension Yes: CONTROLLED WITH MED 12/24/24 13:18 Hx Sleep Apnea Yes 12/24/24 13:18 CPAP Yes: NONCOMPLIANT 12/24/24 13:18 BIPAP No 12/24/24 13:18 Do you snore loudly (louder than talking or can be heard Do you often feel tired/ fatigued/ sleepy during daytime? Has anyone observed you stop breathing during sleep? STOP Results Positive 12/24/24 13:18 QUESTION #5 FULL TEXT : Do you snore loudly (louder than talking or can be heard through closed doors)? Tobacco Use History Tobacco Use History - financial compliance manager: Tobacco Use History - financial compliance manager Tobacco Use Smoking Status Never smoker 12/24/24 13:18 Hx Tobacco Use No 12/24/24 13:18 Years Smoking Packs Smoked per Day Smoking Cessation Date was within the last 15 years Hx Smoking Cessation Date Hx Smoking Cessation Counseling Hematologic Medial History Hematologic Hx - financial compliance manager: Hematologic Medical Hx - control panel operator crude unit Hx of Blood Transfusion No 12/24/24 13:18 Hx of Transfusion in last 3 No 12/24/24 13:18 Months Date of Last Transfusion (if within last 3 months) Ever experience any problems No 12/24/24 13:18 with transfusion(s)? Specify any problems Hx of Preganancy in last 3 No 12/24/24 13:18 Months Nurse Filling Out Transfusion DSCHRIBER 12/24/24 13:18 & Questions: Date: 12/24/24 12/24/24 13:18 Time: 13:20 12/24/24 13:18 Patient unable to answer at this time (ie. confused, unrespo /Reproduction History /Reproductive History - financial compliance manager: /Reproductive Hx- financial compliance manager Hx Now No 12/24/24 13:18 Gestational Age (in weeks): EDC: Hx Hx Para Hx Section SAB No 12/24/24 13:18 Active Medications Active Medications: Current Medications Generic Name Dose Route Start Last Admin Trade Name Freq PRN Reason Stop Dose Admin Cefazolin Sodium 2 gm/ Sodium 110 mls @ 200 mls/hr 01/07/25 11:00 Chloride IV 01/07/25 11:32 INTRAOP ONE Lactated Ringer's 1,000 mls @ 15 mls/hr 01/07/25 09:30 01/07/25 09:43 IV 15 mls/hr .Q48H DAVID Administration PFSH Medical History Cancer Fatty liver Easy bruising Migraine headache Injury of head and neck Low iron Lightheadedness Difficulty swallowing CPAP (continuous positive airway pressure) dependence History of echocardiogram History of palpitations History of MRSA infection Restless legs History of ulceration PONV (postoperative nausea and vomiting) Heartburn Leg cramps History of edema History of stress test Wears dentures Wears glasses Post-menopausal Anxiety Diabetes Thyroid disease Arthritis Anemia Gastric reflux Non-smoker Shortness of breath on exertion Asthma Chronic cough Hypertension History of irregular heartbeat History of rheumatic fever FH: total knee replacement H/O hiatal hernia Home Medications ?Medication ?Instructions ?Recorded ?Last Taken ?Type albuterol sulfate 90 mcg/actuation 2 puff inhalation Q 6H PRN 02/22/23 Unknown History aerosol inhaler (Ventolin HFA) shortness of breath or wheezing atorvastatin 20 mg tablet 20 mg PO QHS HLD 02/22/23 Un known History fluticasone 500 mcg-salmeterol 50 1 inh inhalation BID BREATHING 02/22/23 Unknown History mcg/dose blistr powdr for inhalation (Advair Diskus) ipratropium 0.5 mg-albuterol 3 mg 3 ml inhalation TID shortness of 02/22/23 08/22/23 04:00 History (2.5 mg base)/3 mL nebulization breath or wheezing soln losartan 100 mg tablet (Cozaar) 100 mg PO DAILY HTN 01/07/25 07:00 History montelukast 10 mg tablet 10 mg PO DAILY ASTHMA Unknown History (Singulair) metformin 500 mg tablet 500 mg PO BID DIABETES 07/26 Unknown History ferrous sulfate 325 mg (65 mg 325 mg PO QODAY 12/24/24 Unknown History iron) tablet levothyroxine 175 mcg tablet 175 mcg PO DAILY 12/24/24 Unknown History oxycodone-acetaminophen 5 mg-325 1 tab PO Q6H PRN pain 12/24/24 Unknown History mg tablet Allergy/AdvReac Type Severity Reaction Status Date / Time Sulfa (Sulfonamide Allergy Severe Itching Verified 01/07/25 09:39 Antibiotics) meloxicam Allergy Rash Verified 01/07/25 09:39 Family History Sister Colon cancer Father Diabetes Heart disease Mother Kidney disease Surgical History Hx of total hysterectomy Hx of total knee arthroplasty History of esophagogastroduodenoscopy (EGD) History of total right knee replacement (TKR) History of colonoscopy History of repair of hiatal hernia History of cholecystectomy History of appendectomy Social History Smoking Status: Never smoker alcohol intake: never substance use type: does not use Review of Systems (Anesthesia) ROS Narrative System reviewed and no additional complaints, except as documented.
[2025-01-07] MEDS: Scopolamine 1mg/72hr Patch 1 PATCH TD (10:57)
[2025-01-07] MEDS: Cefazolin 1 GM/5 ML Vial 2 GM IV (10:57)
--- NOTE | 2025-01-07 11:00 | HERN_PTH ---
PATIENT: YOSELIN RIVERS LOC: [facility] [place] U#:[id number] AGE/SX: 74/F ROOM: RE01/07/[address]: Dr. Andrade Traore MD : [id number] BED: DIS: 01/07/2025 SPEC #: [id number] RECD: 01/07/25 14:44 STATUS: MAGALI REQ #: [id number] VIELKA: 01/07/25 11:[address]: Andrade Traore DEPT: SURGICAL PATHOLOGY RECD BY: Audie Rosario ENTERED: 01/07/25 15:43 SP TYPE: Hernia OTHR DR: Dr. Kevin Adam MD Tissues: A - HERNIA Procedures: Surgery Specimen Level II HEADER OPERATION: Hernia, ventral repair no mesh PRE-OP DIAGNOSIS: Hernia TISSUE SUBMITTED: A- Hernia sac MICROSCOPIC DIAGNOSIS A. Soft tissue, ventral hernia repair: Benign fibromembranous tissue with mild chronic inflammation consistent with hernia sac MICROSCOPIC DESCRIPTION Slides are reviewed. GROSS DESCRIPTION A. Received in formalin labeled with the patient's name and date of . Designated as hernia sac is a 4.5 x 3.7 x 0.9 cm dey-pink to red, semimembranous portion of cauterized tissue with attached fat. Baffle Installer sections are submitted in 1 cassette. [place] 01/07/2025 CPT:52508
[2025-01-07] MEDS: Lidocaine 1% (5 ml sdv) 5 ML Vial IV (11:01)
[2025-01-07] MEDS: fentaNYL 100 MCG/2 ML Ampul IV (11:08)
[2025-01-07] MEDS: Bupiv/Epi 0.25% 30 ML Vial (11:44)
--- NOTE | 2025-01-07 11:45 | OP.PCM_ITS ---
Operative Report (Standard) Operative Information Date of Procedure: 01/07/25 Pre-Operative Diagnosis: Left upper quadrant ventral hernia Post-Operative Diagnosis: Same Surgery/Procedure Performed: Ventral hernia repair less than 3 cm word processor technician: Yes Dry Pan Feeder: Yoselyn Perry Tasks completed by certified nursing assistant instructor: Opening & closing and Retracting Type of Anesthesia: General/Regional RN Documented Start/Stop Times: Operation Date: 01/07/25 11:00 Case Time Into Pre-Op 01/07/25 09:20 Out of Pre-Op 01/07/25 10:49 Anesthesia Start 01/07/25 10:57 Into Room 01/07/25 10:57 Procedure Start 01/07/25 11:12 Procedure Start Time: 11:12 Procedure Stop Time: 11:52 Select all DRAINS/GRAFTS/IMPLANTS that apply: None Estimated Blood Loss: 20 Specimen collected: Yes Description of specimen(s) removed: Hernia sac Description of surgery: Patient was brought to the operating room and general anesthesia was induced. The ultrasound was used to localize the hernia and the area was marked. Incision was injected with local anesthetic and then made with a scalpel. It was deepened to the hernia sac. Electrocautery was used for hemostasis. The hernia sac was bluntly dissected free from the surrounding attachments. The hernia sac was then opened and resected. It contained omentum. The omentum was reduced. There was however bleeding which took some time to find but it was an omental bleed that was stopped with electrocautery. After everything was reduced the hernia was closed with interrupted [id number] #1 PDS sutures. The subcutaneous tissue was irrigated and suctioned dry. The subcutaneous tissue was reapproximated using interrupted 3-0 Vicryl sutures. The skin was closed with a running 4-0 Monocryl suture. Steri-Strips and bandages were applied. Patient was taken to PACU in stable condition. Surgical Findings: 1 cm hernia Complications Complications: No Admit VTE Documentation VTE Mechan Device Prophylaxis: SCD's
--- NOTE | 2025-01-07 11:47 | EX.PCM.DISCH ---
Discharge Instructions Procedure Hernia Diet Discharge Diet: Light diet - advance as tolerated Activity Discharge Activity: May Not Drive (for 2-3 days or while taking narcotic pain meds.) and May Shower (with the bandage in place 1-2 days after surgery.) Lifting Restrictions: 20 pounds for 4 weeks. Additional Activity Instructions:: Climbing stairs is fine, walking is encouraged. Sitting in bed may be uncomfortable. Sitting up using your lateral muscles (sitting up sideways) is usually more comfortable. Do not drive, work heavy equipment of sign legal documents for 24 hours. Pain medications may cause nausea, you should typically eat light foods as you take your pain medications. Pain medications may also cause constipation. If you have difficulty with this, discuss with your doctor. Alternate ibuprofen and Tylenol for pain control, oxycodone for breakthrough pain Dressing / Incision Call your doctor if your incision/area has: Continuous Slow Oozing, Sudden Increased Bleeding, Increased Pain/ Swelling, Increased Redness and Foul Smelling Discharge Call your doctor if you observe: Fever of 101 or Higher Suture Line Care: Avoid Pulling/Pushing and Avoid Pinching/Bending Remove Dressing in: 2 days (Remove clear bandages in 2 days, remove Steri-Strips in 7 to 10 days.) Cleanse incision/area with: Soap & Water Follow Up Care Please Follow Up With: Andrade Traore MD When: Please call to schedule 2 week follow up appointment. [phone] Test Results: Test results from this visit will be discussed in further detail at your follow-up appointment, if applicable. Discharge Plan Admission Attending Provider: Andrade Traore Primary Care Provider: Kevin Adam Instructions Print Language: Kyrgyz Discharge Orders/Prescriptions Prescriptions: New oxycodone 5 mg Tablet 5 - 10 mg PO Q4H PRN PRN (Reason: Pain Score 4-10) 5 Days Qty: 14 0RF No Action albuterol sulfate [Ventolin HFA] 90 mcg/actuation HFA aerosol inhaler 2 puff inhalation Q6H PRN (Reason: shortness of breath or wheezing) ipratropium-albuterol 0.5 mg-3 mg(2.5 mg base)/3 mL solution for nebulization 3 ml inhalation TID losartan [Cozaar] 100 mg tablet 100 mg PO DAILY montelukast [Singulair] 10 mg tablet 10 mg PO DAILY atorvastatin 20 mg tablet 20 mg PO QHS fluticasone propion-salmeterol [Advair Diskus] 500-50 mcg/dose blister with device 1 inh inhalation BID metformin 500 mg tablet 500 mg PO BID levothyroxine 175 mcg tablet 175 mcg PO DAILY oxycodone-acetaminophen 5-325 mg tablet 1 tab PO Q6H PRN (Reason: pain) ferrous sulfate 325 mg (65 mg iron) tablet 325 mg PO QODAY Referrals / Follow Up: Kevin Adam MD [Primary Care Provider] - Disposition Disposition (needs filled in before D/C Order can be placed): Home, Self Care
--- NOTE | 2025-01-07 11:55 | PCM.POST.ANE ---
Anesthesia: Postop Eval I Current Vital Signs Temperature: 97.2 F Pulse Rate: 66 Blood Pressure: 159/56 Respiratory Rate: 14 Pulse Ox: 99 Assessment Airway patent: Yes Spontaneous unlabored respirations: Yes nausea: No Vomiting: No Anesthesia Complication: No Fluid Hydration Crystalloid volume administer (ml): 600 Total IV fluid infused: 600 Progress Note Anesthesia document: Postop Eval 1 completed: Yes
--- NOTE | 2025-01-07 13:03 | POSTOPAN2_ITS ---
Anesthesia Postop Eval I Sum Postop Eval Completion status Anesthesia document: Postop Eval 1 completed: Yes Anesthesia Postop Eval I Summary Anesthesia Postop Eval I Summary: Anesthesia Postop Eval I: Assessment Summary Airway patent Yes 01/07/25 11:56 WELDER PLASMA [email or web address] Spontaneous unlabored Yes 01/07/25 11:56 WELDER PLASMA [email or web address].[email or web address] respirations Mental status nausea No 01/07/25 11:56 WELDER PLASMA [email or web address].[email or web address] Vomiting No 01/07/25 11:56 WELDER PLASMA [email or web address] Anesthesia Postop Eval I: Fluid Summary Crystalloid volume administer 600 01/07/25 11:56 WELDER PLASMA [email or web address].TNES (ml) Colloids volume administered ( ml) Blood Product volume administered (ml) Total IV fluid infused 600 01/07/25 11:56 WELDER PLASMA [email or web address] Anesthesia Postop Eval I: Summary Notes Anesthesia Complication No 01/07/25 11:56 WELDER PLASMA [email or web address] Anesthesia Complication Comment: Post-operative progress note Anesthesia: Postop Eval II Evaluation Mental status: Awake and Calm Pain Level: 1 nausea: No Vomiting: No Complications Anesthesia Complication: No
--- NOTE | 2025-01-07 13:03 | PCM.POSTANE2 ---
Anesthesia Postop Eval I Sum Postop Eval Completion status Anesthesia document: Postop Eval 1 completed: Yes Anesthesia Postop Eval I Summary Anesthesia Postop Eval I Summary: Anesthesia Postop Eval I: Assessment Summary Airway patent Yes 01/07/25 11:56 MANAGER [email or web address] Spontaneous unlabored Yes 01/07/25 11:56 MANAGER [email or web address] respirations Mental status nausea No 01/07/25 11:56 MANAGER [email or web address] Vomiting No 01/07/25 11:56 MANAGER [email or web address] Anesthesia Postop Eval I: Fluid Summary Crystalloid volume administer 600 01/07/25 11:56 MANAGER [email or web address] (ml) Colloids volume administered ( ml) Blood Product volume administered (ml) Total IV fluid infused 600 01/07/25 11:56 MANAGER [email or web address] Anesthesia Postop Eval I: Summary Notes Anesthesia Complication No 01/07/25 11:56 MANAGER [email or web address] Anesthesia Complication Comment: Post-operative progress note Anesthesia: Postop Eval II Evaluation Mental status: Awake and Calm Pain Level: 1 nausea: No Vomiting: No Complications Anesthesia Complication: No
== END 2025-01-07 14:10 | disposition home or self-care (01) ==
LOC: SDC 09:13 → AC 09:15
PROVIDERS: Anesthesiology; PCP Family Medicine; Referring Provider Surgery; Visit Provider Surgery
PROC: (CPT 49593; principal; 2025-01-07 10:45)
DX: K43.9 Ventral hernia without obstruction or gangrene (principal); E11.9 Type 2 diabetes mellitus without complications; E78.00 Pure hypercholesterolemia, unspecified; K21.9 Gastro-esophageal reflux disease without esophagitis; I10 Essential (primary) hypertension; J45.909 Unspecified asthma, uncomplicated; Z79.899 Other long term (current) drug therapy
CPT/HCPCS: 49593; 00832; 36415; 82962; 83036; 84443; 85610; 85730; 88302; 93005; J2405

== ENCOUNTER → 2025-02-13 | Outpatient (CLI) | payer MEDICARE, SELFPAY | END | disposition home or self-care (01) | LOC: LABSPEC 14:54 | PROVIDERS: PCP Family Medicine | DX: K13.79 Other lesions of oral mucosa (principal) | CPT/HCPCS: 87070; 87205 ==